=== PATIENT | female | born 1970 | race Caucasian/White ===

== ENCOUNTER 2018-10-11 19:19 | Outpatient (REF) | payer OTHER, SELFPAY | END 2018-10-11 19:39 | LOC: NCHCN 19:19 | PROVIDERS: PCP Family Medicine; Visit Provider Family Medicine | DX: R69 Illness, unspecified (principal) | CPT/HCPCS: 87480; 87510; 87660 ==

== ENCOUNTER 2018-10-18 21:25 | Outpatient (REF) | payer OTHER, SELFPAY | END 2018-10-18 21:45 | LOC: NCHCN 21:25 | PROVIDERS: PCP Family Medicine; Visit Provider Family Medicine | DX: N89.8 Other specified noninflammatory disorders of vagina (principal) | CPT/HCPCS: 87480; 87510; 87660 ==

== ENCOUNTER 2018-10-19 05:58 | Outpatient (CLI) | payer OTHER, SELFPAY ==
--- NOTE | 2018-10-23 12:56 | HOLTER_ITS ---
HOLTER MONITOR REPORT DATE OF DICTATION October 23, 2018 STUDY INDICATION Palpitations. REQUESTING PROVIDER Carla López M.D. FINDINGS The patient was monitored for 24 hours. The baseline rhythm was sinus rhythm. Average heart rate 78 beats per minute, range 56 to 161 beats per minute. 26 PVCs, no VT. No PACs. No SVT. There was intermittent nocturnal 2:1 second-degree heart block Mobitz type I. No pauses greater than 3 seconds. No higher degree heart block. There were 3 patient events, none of these events correlated with arrhythmias. FINAL INTERPRETATION Intermittent nocturnal second-degree heart block, Mobitz type I. Otherwise a normal study. Ruslan Salas M.D. JEOVANNY/jelly T- 10/23/2018
== END 2018-10-19 06:18 ==
PROVIDERS: PCP Family Medicine; Visit Provider Family Medicine
DX: R00.2 Palpitations (principal); I44.1 Atrioventricular block, second degree
CPT/HCPCS: 93225

== ENCOUNTER 2018-10-23 10:15 | Outpatient (CLI) | payer OTHER, SELFPAY | END 2018-10-23 10:35 | PROVIDERS: PCP Family Medicine; Visit Provider Family Medicine | DX: R00.2 Palpitations (principal); I44.1 Atrioventricular block, second degree | CPT/HCPCS: 93225; 93226 ==

== ENCOUNTER 2019-04-25 00:52 | Outpatient (CLI) | payer OTHER, SELFPAY ==
--- NOTE | 2019-04-25 07:30 | MERGE_ITS ---
*[facility]* *[facility]* [address] [place] [address] Date of study: 04/25/2019 Transthoracic Echocardiography M-mode, complete 2D, complete spectral Doppler, and color Doppler *STUDY CONCLUSIONS* Summary: 1. Left ventricle: The cavity size was normal. Wall thickness was normal. Systolic function was normal. The estimated ejection fraction was 60-65%. Wall motion was normal; there were no regional wall motion abnormalities. 2. Right ventricle: The cavity size was at the upper limits of normal. Wall thickness was normal. Systolic function was normal. 3. Pulmonary arteries: Pulmonary systolic pressure was within the normal range. *PATIENT PRESENTATION* Height: 152.4cm ((60in) ) S/D Pressure: 121 / 82 Weight: 56.7kg ((124.7lb) ) BSA: 1.56m^2 Test start time: 07:40 AM. Test stop time: 08:40 AM. ORDERING Carla López V REFERRING Carla López V PERFORMING Unknown PERFORMING [facility] HEEL COVERER Chasity Pérez RT (R)(CT), UMER REFERRING Md Maribel Lin *PROCEDURE DATA* Procedure information: The patient was identified by two identifiers. This study was interpreted by [facility]. Pertinent images and digital data are archived for permanent storage and are available for subsequent review. No prior study was available for comparison. Study status: Routine. Transthoracic echocardiography. M-mode, complete 2D, complete spectral Doppler, and color Doppler. A Transthoracic Echocardiogram was performed. Scanning was performed from the parasternal, apical, subcostal, and suprasternal notch acoustic windows. Images were obtained using an [id number] cardiac ultrasound machine. Image quality was fair. Study completion: The patient tolerated the procedure well. History: PMH: Intermittent palpitations R00.2. *CARDIAC ANATOMY* Left ventricle: The cavity size was normal. Wall thickness was normal. Systolic function was normal. The estimated ejection fraction was 60-65%. Wall motion was normal; there were no regional wall motion abnormalities. Aortic valve: Trileaflet; normal thickness leaflets. Mobility was not restricted. Doppler: Transvalvular velocity was within the normal range. There was no stenosis. There was no significant regurgitation. VTI ratio of LVOT to aortic valve: 0.79. Valve area (VTI): 2.2cm^2. Indexed valve area (VTI): 1.4cm^2/m^2. Peak velocity ratio of LVOT to aortic valve: 0.8. Valve area (Vmax): 2.3cm^2. Indexed valve area (Vmax): 1.4cm^2/m^2. Mean velocity ratio of LVOT to aortic valve: 0.76. Valve area (Vmean): 2.1cm^2. Indexed valve area (Vmean): 1.4cm^2/m^2. Mean gradient (S): 2.6mm Hg. Peak gradient (S): 4.4mm Hg. Aorta: Aortic root: The aortic root was normal in size. Ascending aorta: The ascending aorta was normal in size. Mitral valve: Mildly thickened leaflets. Mobility was not restricted. Doppler: Transvalvular velocity was within the normal range. There was no evidence for stenosis. There was trivial regurgitation. Valve area by pressure half-time: 4cm^2. Indexed valve area by pressure half-time: 2.6cm^2/m^2. Left atrium: The atrium was normal in size. Right ventricle: The cavity size was at the upper limits of normal. Wall thickness was normal. Systolic function was normal. Pulmonic valve: Poorly visualized. Doppler: Transvalvular velocity was within the normal range. There was no evidence for stenosis. There was no significant regurgitation. Peak gradient (S): 2mm Hg. Tricuspid valve: Structurally normal valve. Doppler: Transvalvular velocity was within the normal range. There was no evidence for stenosis. There was trivial regurgitation. Pulmonary artery: Poorly visualized. Pulmonary systolic pressure was within the normal range. Right atrium: The atrium was normal in size. The Eustachian valve appeared prominent. Pericardium: There was no pericardial effusion. Systemic veins: Inferior vena cava: Well visualized. The vessel was patent and normal in size. The respirophasic diameter changes were in the normal range (greater than or equal to 50%), consistent with normal central venous pressure. Baseline ECG: Normal sinus rhythm. Measurements Left ventricle Value Reference LV ID, ED, PLAX 4.8 cm 3.5 - 6.0 LV ID, ES, PLAX 3.3 cm 2.1 - 4.0 LV PW thickness, ED, PLAX 0.9 cm LV end-diastolic volume, 1-p A2C 79 ml LV ejection fraction, 1-p A2C 66 % LV end-diastolic volume, 1-p A4C 64 ml LV ejection fraction, 1-p A4C 63 % LV e', lateral 0.12 m/sec LV E/e', lateral 5 LV e', medial 0.078 m/sec LV E/e', medial 7 LV e', average 0.099 m/sec LV E/e', average 6 Ventricular septum Value Reference IVS thickness, ED, PLAX 0.7 cm LVOT Value Reference LVOT ID, A-P 1.9 cm LVOT area 2.8 cm^2 LVOT peak velocity, S 0.83 m/sec LVOT mean velocity, S 0.6 m/sec LVOT VTI, S 16.6 cm LVOT peak gradient, S 2.8 mm Hg LVOT mean gradient, S 1.6 mm Hg Stroke volume (SV), LVOT DP 47 ml Stroke index (SV/bsa), LVOT DP 30 ml/m^2 Aortic valve Value Reference Aortic valve peak velocity, S 1 m/sec Aortic valve mean velocity, S 0.78 m/sec Aortic valve VTI, S 21.0 cm Aortic mean gradient, S 2.6 mm Hg Aortic peak gradient, S 4.4 mm Hg VTI ratio, LVOT/AV 0.79 Aortic valve area, VTI 2.2 cm^2 Velocity ratio, peak, LVOT/AV 0.8 Aortic valve area, peak velocity 2.3 cm^2 Velocity ratio, mean, LVOT/AV 0.76 Aortic valve area, mean velocity 2.1 cm^2 Aortic valve area/bsa, mean velocity 1.4 cm^2/m^2 Aorta Value Reference Aortic root ID, ED 3.1 cm Ascending aorta ID, A-P, S 3.2 cm Left atrium Value Reference LA ID, A-P, ES 2.4 cm LA ID/bsa, A-P 1.5 cm/m^2 <=2.2 LA area, ES, A4C 11.3 cm^2 8.8 - 23.4 LA area, ES, A2C 15 cm^2 LA volume/bsa, ES, 1-p A4C 27 ml/m^2 LA volume, ES, 2-p 34 ml LA volume/bsa, ES, 2-p 21 ml/m^2 LA/aortic root ratio 0.75 Mitral valve Value Reference Mitral E-wave peak velocity 0.58 m/sec Mitral A-wave peak velocity 0.53 m/sec Mitral deceleration time 190 ms 150 - 230 Mitral pressure half-time 55 ms Mitral E/A ratio, peak 1.1 Mitral valve area, PHT, DP 4 cm^2 Pulmonary arteries Value Reference PA pressure, S, DP 28 mm Hg <=30 Tricuspid valve Value Reference Tricuspid regurg peak velocity 2.2 m/sec Tricuspid peak RV-RA gradient 19.8 mm Hg Right atrium Value Reference RA area, ES, A4C 13.9 cm^2 8.3 - 19.5 Systemic veins Value Reference Estimated CVP 10 mm Hg Right ventricle Value Reference RV pressure, S, DP 30 mm Hg <=30 Pulmonic valve Value Reference Pulmonic peak gradient, S 2 mm Hg Legend: (L) and (H) carl values outside specified reference range. I have personally reviewed the images and have reviewed and edited the reported findings. Electronically signed by Sean Bill 04/25/2019 16:24
== END 2019-04-25 01:12 ==
PROVIDERS: PCP Family Medicine; Visit Provider Family Medicine
DX: R00.2 Palpitations (principal)
CPT/HCPCS: 93306

== ENCOUNTER 2019-05-01 10:19 | Outpatient (CLI) | payer OTHER, SELFPAY | END 2019-05-01 10:39 | PROVIDERS: PCP Family Medicine; Visit Provider Student in an Organized Health Care Education/Training Program | DX: I47.1 Supraventricular tachycardia (principal) | CPT/HCPCS: 93005; 93010 ==

== ENCOUNTER 2019-05-01 13:19 | Outpatient (REF) | payer OTHER, SELFPAY ==
[2019-05-01 20:26] LABS: Cholesterol 190 mg/dL (50-200); HDL Cholesterol 107 mg/dL (40-60)
[2019-05-01 20:28] LABS: Triglyceride < 25 mg/dL (30-150)
[2019-05-01 20:39] LABS: LDL CHOLESTEROL 72 mg/dL (<100)
== END 2019-05-01 13:39 ==
LOC: NCHCN 13:19
PROVIDERS: PCP Family Medicine; Visit Provider Family Medicine
DX: Z13.220 Encounter for screening for lipoid disorders (principal); Z13.6 Encounter for screening for cardiovascular disorders
CPT/HCPCS: 80061; 83721

== ENCOUNTER 2019-08-02 01:50 | Outpatient (CLI) | payer OTHER, SELFPAY ==
--- NOTE | 2019-08-02 08:12 | DI.MAMMO_ITS ---
EXAM: MAMMO SCREENING CLINICAL HISTORY: SCREENING, Z12.31. TECHNIQUE: Mammograms were interpreted according to the usual protocol including computer analysis w [facility] CAD system, tomosynthesis and C-view imaging. COMPARISON: Previous examinations including November 2016 FINDINGS: Breasts are heterogeneously dense with no dominant mass or clumped microcalcification identified [facility] e [facility] breast. Current examination is compared with previous examinations including November 2016 and there has been no gross interval change in appearance in comparison with the previous studies. IMPRESSION: No specific evidence of malignancy at this time. Routine screening examinations are suggested at year ly intervals in this age group according to the ACS/ACR guidelines. Category 1, breast density catego ry C. BI-RADS Cat 1 - Negative Breast Density - Category C - Heterogeneously dense
== END 2019-08-02 02:10 ==
PROVIDERS: PCP Family Medicine; Visit Provider Family Medicine
DX: Z12.31 Encounter for screening mammogram for malignant neoplasm of breast (principal)
CPT/HCPCS: 77063; 77067

== ENCOUNTER 2019-11-19 17:56 | Outpatient (REF) | payer OTHER, SELFPAY ==
[2019-11-19 21:44] LABS: HCT 40.3 % (36.0-46.0); HGB 13.4 g/dL (12.0-15.5); Mean Corp. HGB Concentration 33.3 g/dL (32.0-36.0); Mean Corpuscular Hemoglobin 32.1 pg (27.0-33.0); Mean Corpuscular Volume 96.4 fL (80-95); Platelet Count 298 x1000/uL (130-400); RBC 4.18 m/cumm (4.00-5.20); RBC Distribution Width 12.1 % (11.7-14.6); White Blood Cell Count 6.68 k/cumm (4.4-10.8)
[2019-11-19 22:12] LABS: Ferritin 27 ng/mL (8-252); TSH (W/Ref FT4) 2.28 uIU/mL (0.36-3.74)
== END 2019-11-19 18:16 ==
LOC: NCHCN 17:56
PROVIDERS: PCP Family Medicine; Visit Provider Family Medicine
DX: N93.8 Other specified abnormal uterine and vaginal bleeding (principal)
CPT/HCPCS: 85027; 82728; 84443

== ENCOUNTER 2019-12-17 09:44 | Outpatient (CLI) | payer OTHER, SELFPAY ==
[2019-12-17 11:06] LABS: HCT 40.9 % (36.0-46.0); HGB 13.7 g/dL (12.0-15.5); Mean Corp. HGB Concentration 33.5 g/dL (32.0-36.0); Mean Corpuscular Hemoglobin 31.8 pg (27.0-33.0); Mean Corpuscular Volume 94.9 fL (80-95); Mean Platelet Volume 9.6 fL (8.0-11.0); Platelet Count 312 x1000/uL (130-400); RBC 4.31 m/cumm (4.00-5.20); RBC Distribution Width 11.6 % (11.7-14.6); White Blood Cell Count 4.13 k/cumm (4.4-10.8)
[2019-12-17 12:07] LABS: BUN 18 mg/dL (7-18); Calcium 8.5 mg/dL (8.5-10.1); Chloride 106 mmol/L (98-107); Glucose 101 mg/dL (74-106); Potassium 4.8 mmol/L (3.5-5.1); Sodium 140 mmol/L (136-145)
[2019-12-17 15:13] LABS: HCG Qual (Serum) Negative
== END 2019-12-17 10:04 ==
PROVIDERS: PCP Family Medicine; Visit Provider Obstetrics & Gynecology Gynecology
DX: D25.9 Leiomyoma of uterus, unspecified (principal); Z01.818 Encounter for other preprocedural examination; Z01.812 Encounter for preprocedural laboratory examination
CPT/HCPCS: 36415; 80048; 85027; 86850; 86900; 86901; 84703

== ENCOUNTER 2019-12-25 10:16 | Observation (INO) | payer OTHER, SELFPAY ==
[2019-12-25] VITALS (18 sets, daily range): BP systolic 103–137; BP diastolic 56–88; PULSE 51–98; RESP 12–20; TEMP 36.4–36.9; O2SAT 96–100
[2019-12-25] MEDS: Lactated Ringers 1,000 ML 125 ML IV ×2 (06:35→19:26)
[2019-12-25] MEDS: ceFAZolin 2 GM/50 ML BAG IVPB (07:36)
--- NOTE | 2019-12-25 09:05 | UTER_PTH ---
PATIENT: Angella Hartley LOC: OBS U#:[id number] AGE/SX: 49/F ROOM: OBS.306 RE12/25/[address]: Kelsea Green : 1970 BED: A DIS: 12/26/2019 SPEC #: [id number] RECD: 12/25/19 12:43 STATUS: FARSHAD REQ #: [id number] ADENIKE: 12/25/19 09:[address]: Kelsea Green DEPT: Surgical Specimen RECD BY: Vicky Briseno ENTERED: 12/25/19 12:44 SP TYPE: UTER OTHR DR: Carla López V Tissues: 1 - UTERUS W OR W/O OVARIES(NOT TUMOR/PROLAPSE) 2 - FALLOPIAN TUBE (OTHER) 3 - FALLOPIAN TUBE (OTHER) Procedures: GROSS AND MICRO LEVEL 5 Comments: [id number] (ALL SPECIMENS IN ONE CONTAINER)
[2019-12-25] MEDS: fentaNYL 100 MCG/2 ML VIAL IVP ×2 (11:12→11:25)
[2019-12-25] MEDS: Phenazopyridine 200 MG TAB PO ×2 (11:53→19:24)
[2019-12-25] MEDS: ACETAMINOPHEN 1,000 MG/100 ML BTL 400 MG IVPB (12:18)
[2019-12-25] MEDS: HYDROmorphone 2 MG/ML VIAL IVP (12:32)
[2019-12-25] MEDS: Droperidol 5 MG/2 ML VIAL 0.625 MG IVP (12:40)
--- NOTE | 2019-12-25 13:32 | NUR.NOTE ---
1300: Admitted to room 306 from PACU. Eyes closed, resp even, schumacher cath to BSD, urine blue. IV of LR infusing via R periph line at 125 cc/hr. Pt sleeping but answers to name. Report received from nurse.Nursing Note:
[2019-12-25] MEDS: HYDROcodone 5/Acetaminophen 325 TAB PO ×3 (14:59→20:26)
[2019-12-25] MEDS: Ketorolac 30 MG/ML VIAL IVP ×2 (15:26→20:24)
[2019-12-25] MEDS: Normal Saline Flush 10 ML SYR IV ×3 (15:26→20:25)
[2019-12-25] MEDS: Ondansetron 4 MG/2 ML VIAL IVP (19:24)
[2019-12-25] MEDS: Docusate Sodium 100 MG CAP PO (19:24)
--- NOTE | 2019-12-25 21:35 | W.PM.OP ---
Date of service: 12/25/19 Time of Service: 21:35 Operative Note Operative Note DATE OF PROCEDURE: 12/25/19 PRE-OP DIAGNOSIS: Symptomatic fibroid uterus POST-OP DIAGNOSIS: same PROCEDURE: Vaginal hysterectomy and bilateral salpingectomy, bladder cystoscopy at the completion of the case SURGEON: Kelsea Green DIAPER MACHINE TENDER: Mulu Cohn ANESTHESIA: GETA ESTIMATED BLOOD LOSS: 100 PATHOLOGY: other (Uterus cervix and bilateral fallopian tubes) COMPLICATIONS: None Patient was transported to: PACU Patient's condition: stable Indications: 49-year-old female with an enlarged uterus and symptomatic submucosal fibroid who desired definitive therapy. Findings: Soft enlarged uterus with evidence of subserosal and intramural fibroids. Normal ovaries normal fallopian tubes Procedure Description: Patient was brought to the OR room 2 where she was placed in the dorsal supine position and general endotracheal anesthesia was administered without difficulty. She received 2 g of Ancef upon arrival in the OR. SCDs were in place. Contreras catheter was placed to gravity drainage patient was prepped and draped in the usual sterile fashion a surgical timeout was performed. A weighted vaginal speculum was placed in the vagina and the cervix was grasped with 2 single-tooth tenaculums the body of the cervix was infiltrated with 1% lidocaine with epinephrine in a circumferential fashion. Bovie electrocautery was then used to incise the cervix and anterior and posterior the fascial planes was created with a combination of blunt technique and dissection using Metzenbaum scissors. Once the rectal vaginal fascia had been dissected off of the posterior body of the cervix the posterior cul-de-sac was entered sharply and through the incision a longbilled weighted speculum was placed. This allowed mobilization of the uterosacral ligament cardinal complex away from the right and left vaginal sidewalls. The right uterosacral ligament was clamped transected and suture-ligated and held long using 0 Vicryl in a similar technique was carried out on the contralateral uterosacral ligament. This allowed the anterior cul-de-sac to be entered sharply and through the incision a curved Leola was placed to retract the bladder away from the operative field. The remaining right and left broad ligament was then clamped cut and suture-ligated total level of the right uterine cornua which was then doubly clamped, transected and suture-ligated with excellent hemostasis noted at the pedicle site. Similar technique was carried out on the left uterine cornua. The uterus was freed and passed off of the operative field. The right fallopian tube was visualized followed out to its fimbriated end clamped transected and the pedicle suture-ligated. Similar technique was carried out on the contralateral fallopian tube. Both ovaries were inspected and appeared normal. The peritoneum of the vaginal cuff was closed with a pursestring suture of 2-0 Vicryl. The vaginal cuff was reapproximated in a vertical fashion with running suture of 0 Vicryl to the level of the uterosacral ligament sutures. A free needle was then used to place the uterosacral ligament pedicle higher up on the body of the uterosacral ligament and through the lateral margins of the vaginal cuff bilaterally. The remaining vaginal cuff incision was closed with 0 Vicryl in a running fashion. There is excellent hemostasis of the vaginal cuff at the completion of the procedure. The instruments removed from the patient's vagina and a cystoscopy was performed using normal saline as the distention medium. Both ureters were visualized and noted to have a brisk chest of urine bilaterally. Contreras catheters was reinserted to gravity drainage patient was placed in the dorsal supine position awakened from anesthesia extubated and transported recovery area in stable condition all sponge lap needle counts correct x2
[2019-12-26] MEDS: HYDROcodone 5/Acetaminophen 325 TAB PO ×3 (00:34→08:20)
[2019-12-26] MEDS: Lactated Ringers 1,000 ML 125 ML IV (03:00)
[2019-12-26 04:00] VITALS: BP 128/82; PULSE 68; RESP 18; TEMP 37
[2019-12-26] MEDS: Ketorolac 30 MG/ML VIAL IVP (04:06)
[2019-12-26] MEDS: Normal Saline Flush 10 ML SYR IV (04:06)
[2019-12-26 06:36] LABS: HCT 33.7 % (36.0-46.0); HGB 11.3 g/dL (12.0-15.5); Mean Corp. HGB Concentration 33.5 g/dL (32.0-36.0); Mean Corpuscular Hemoglobin 32.2 pg (27.0-33.0); Mean Platelet Volume 9.1 fL (8.0-11.0); Platelet Count 273 x1000/uL (130-400); RBC 3.51 m/cumm (4.00-5.20); RBC Distribution Width 11.8 % (11.7-14.6)
--- NOTE | 2019-12-26 07:39 | DSE_ITS ---
Date of service: 12/26/19 Time of Service: 07:39 DS: Diagnosis Discharge Diagnosis (1) Fibroid uterus: Status: Acute (2) History of total vaginal hysterectomy (TVH): Status: Acute Discharge Plan Disposition Patient Disposition: HOME Condition: Fair Discharge Details Reason For Visit: SYMTOMATIC FIBROID UTERUS Admit Date/Time: 12/25/19 10:16 Admit Provider: Kelsea Green Attending Provider: Kelsea Green Primary Care Provider: Carla López V Hospital Course Hospital Course: Pt admitted morning of surgery and underwent the above stated procedure. Final path report pending. Postop course was uncomplicated. Contreras catheter was discontinued evening of surgery and pt was able to void spontaneously. Tolerating regular diet. Discharge meds: Vicodin 5/325mg q6hr as needed. Ibuprofen 600mg every 6hrs as needed. Patient will have follow up visit with me in 2weeks or as needed. Home Meds and New Rx's Prescriptions: No Action methylphenidate HCl [Ritalin] 5 MG tablet 5 mg PO BID RF: 0 Discharge Instructions Stand Alone Forms: DSU Post Gynecology Surgery Activity:: Activity as Tolerated Equipment/Supplies:: No Equipment Needed Diet:: As Tolerated Discharge Orders Discharge Orders: Discharge Order (Routine); Ordered 12/26/19 Ordered By: Kelsea Green Discharge Data Discharge Date/Time-TO BE ENTERED AT DEPARTURE: 12/26/19 10:18 DS: Summary Status at Discharge Functional status at discharge: independent ambulation Overall status at discharge: patient is progressing back to baseline Mental Status: mental status grossly normal Speech and Movement: speech and movement normal Mood: congruent mood Affect: normal affect Exam Narrative Exam Narrative: By the morning after surgery the patient was comfortable and strongly desired discharge to home. She was counseled regarding limitations of activity and signs and symptoms of infection. Resp Effort & Inspection: normal respiratory effort Auscultation: clear to auscultation bilaterally Cardio Rate: regular rate Rhythm: regular rhythm GI Inspection: normal to inspection Palpation: soft, no masses and nontender General: deferred Skin General skin exam: no rashes or lesions noted Extrem General: normal to inspection, full ROM and capillary refill normal Psych Appearance: grossly normal Mental Status: mental status grossly normal Speech and Movement: speech and movement normal Mood: congruent mood Affect: normal affect DS: Data Vitals/I&O Vitals and I&O: Vital Signs Temperature 98.6 F 12/26/19 04:00 Temperature Source Tympanic 12/26/19 04:00 Pulse 68 12/26/19 04:00 Pulse Rhythm Regular 12/25/19 15:55 Respiratory Rate 18 12/26/19 04:00 Respiratory Effort 12/25/19 15:55 Respiratory Depth Normal 12/25/19 15:55 Respiratory Pattern Normal 12/25/19 15:55 Blood Pressure 128/82 12/26/19 04:00 Pulse Oximetry 100 12/25/19 23:42 Respiratory End-tidal CO2 12/25/19 12:15 Oxygen Delivery Method Room Air 12/26/19 04:00 Oxygen Flow Rate 0 12/26/19 04:00 Pain Level 3 12/26/19 04:06 Intake & Output 12/25/19 12/25/19 12/26/19 11:59 23:59 11:59 Intake Total 750 / 1750 1000 / 1750 1352 / 1352 Output Total 100 / 775 675 / 775 Balance 650 / 975 325 / 975 1352 / 1352 Weight 125 lb 3.561 oz 125 lb 3.561 oz Intake: IV 750 / 1150 400 / 1150 1352 / 1352 Oral 600 / 600 Output: Urine 675 / 675 Estimated Blood Loss 100 / 100 Other: Urine Color [place] Urine Appearance Clear Urine Odor None Emesis Description None None Voiding Methods Toilet Data Completed and Pending Labs on day of discharge: Labs from last 24 hours 12/26/19 06:08 WBC 8.20 RBC 3.51 L Hgb 11.3 L Hct 33.7 L MCV 96.0 H MCH 32.2 MCHC 33.5 RDW 11.8 Plt Count 273 MPV 9.1 PFSH Medical History Fibroid uterus (Acute) 11/2019 uterus 11 cm 3 x 3.5 x 4 cm submucosal fibroid. 7 mm ES. History of second degree heart block (Acute) Intermittent nocturnal second degree heartblock Jennifer Sparrow saw Dr. Olmstead Lichen sclerosus et atrophicus periclitoral region. Paroxysmal supraventricular tachycardia (Acute) Urinary frequency (Acute) 11/2019 direct result of uterine fibroid. No urinary incontinence Surgical History (Updated 12/26/19 @ 07:42 by Kelsea Green MD) History of total vaginal hysterectomy (TVH) (Acute) 12/25/19. TVH with bilateral salpingectomy for symptomatic fibroid uterus Tonsillectomy and adenoidectomy (~2018) Family History (Updated 12/17/19 @ 10:58 by Dhiraj Arias) Father Substance abuse Social History (Updated 12/26/19 @ 07:45 by Kelsea Green MD) Smoking/Tobacco Use Status: Former Tobacco Use Quit Date: 11/13/01 Alcohol Intake: current Alcohol Intake frequency: a few times a week Alcohol type: wine Drug use: Never Substance use type: does not use Household members: spouse, children and other Details: H - Luis Manuel Number of Children: 2 Do you feel safe at home: Yes Do you feel safe in your relationship?: Yes History History 2 Para Hx # Term Pregnancies 2 Multiple births Hx # Pregnancies Ectopic pregnancies AB induced Hx Number of Living Children 3 AB spontaneous
[2019-12-26 08:14] VITALS: BP 119/80; PULSE 70; RESP 18; TEMP 36.7; O2SAT 100
[2019-12-26] MEDS: Docusate Sodium 100 MG CAP PO (08:20)
== END 2019-12-26 10:18 | disposition home or self-care (01) ==
LOC: OBS 12:57
PROVIDERS: Admitting Provider Obstetrics & Gynecology Gynecology; PCP Family Medicine; Visit Provider Obstetrics & Gynecology Gynecology
PROC: 0UT97ZZ Resection of Uterus, Via Natural or Artificial Opening (ICD-10-PCS; CPT 58260; principal; 2019-12-25 07:30)
DX: D25.0 Submucous leiomyoma of uterus (principal); N80.0 Endometriosis of uterus
CPT/HCPCS: 58262; 36415; 81025; 85027; NC; 88307; J0131; J0690; J1100; J1790; J1885; J2001; J2250; J2405; J3010; J3475

== ENCOUNTER 2020-09-28 12:38 | Outpatient (REF) | payer SELFPAY ==
[2020-10-01 09:01] LABS: SARS-CoV-2 RNA Not Detected (NotDetected); SARS-CoV-2 RNA Source Nasal/Nares
== END 2020-09-28 12:58 ==
LOC: NCHCN 12:38
PROVIDERS: PCP Family Medicine; Visit Provider Nurse Practitioner Family
DX: Z11.59 Encounter for screening for other viral diseases (principal)
CPT/HCPCS: U0003

== ENCOUNTER 2021-04-01 07:51 | Outpatient (REF) | payer OTHER, SELFPAY ==
[2021-04-01 15:03] LABS: Calculated LDL 91 mg/dL (<100); Cholesterol 193 mg/dL (<200); Glucose 100 mg/dL (74-106); HDL Cholesterol 94 mg/dL (40-60); Triglyceride 42 mg/dL (<150)
== END 2021-04-01 07:52 | disposition home or self-care (01) ==
LOC: NCHCN 07:51
PROVIDERS: PCP Family Medicine; Visit Provider Family Medicine
DX: Z00.00 Encounter for general adult medical examination without abnormal findings (principal); Z13.1 Encounter for screening for diabetes mellitus; Z13.220 Encounter for screening for lipoid disorders
CPT/HCPCS: 80061; 82947

== ENCOUNTER 2021-09-24 09:18 | Outpatient (REF) | payer OTHER, SELFPAY ==
[2021-09-25 00:42] LABS: COVID-19 RT-PCR UVMMC Result Negative (Negative)
== END 2021-09-24 09:19 | disposition home or self-care (01) ==
LOC: NCHCN 09:18
PROVIDERS: PCP Family Medicine; Visit Provider Family Medicine
DX: Z20.822 Contact with and (suspected) exposure to COVID-19 (principal); J06.9 Acute upper respiratory infection, unspecified
CPT/HCPCS: U0003

== ENCOUNTER 2021-11-18 13:38 | Outpatient (REF) | payer OTHER, SELFPAY ==
[2021-11-19 12:31] LABS: COVID-19 RT-PCR UVMMC Result Negative (Negative)
== END 2021-11-18 13:39 | disposition home or self-care (01) ==
LOC: LBN 13:38
PROVIDERS: PCP Family Medicine; Visit Provider Family Medicine
DX: Z20.822 Contact with and (suspected) exposure to COVID-19 (principal)
CPT/HCPCS: U0003

== ENCOUNTER 2023-02-16 12:44 | Outpatient (REF) | payer BC, SELFPAY ==
[2023-02-16 15:16] LABS: Abs Immature Grans 0.01 10^3/uL (0.0-0.06); Absolute Basophil Count 0.03 10^3/uL (0.0-0.2); Absolute Eosinophil Count 0.12 10^3/uL (0.0-0.7); Absolute Lymphocyte Count 1.46 10^3/uL (1.2-3.4); Absolute Neutrophil Count 2.67 10^3/uL (1.2-6.7); Basophils % 0.6; Eosinophils % 2.6; HCT 42.1 % (36.0-46.0); Immature Grans % 0.2; Lymphocytes % 31.1; MCH 31.6 pg (27.0-33.0); MCHC 33.3 % (32.0-36.0); MCV 95 fL (80-95); MPV 10.1 fL (8.0-11.0); Monocytes % 8.5; Platelet Count 247 10^3/uL (130-400); RBC 4.43 10^6/uL (3.93-5.22); RDW 11.5 % (11.7-14.6); WBC 4.69 10^3/uL (4.4-10.8)
[2023-02-16 15:44] LABS: Hemoglobin A1C 5.8 % (<5.7)
[2023-02-16 16:05] LABS: ALT 25 U/L (14-59); AST 19 U/L (15-37); Albumin 3.8 g/dL (3.4-5.0); Alkaline Phosphatase 69 U/L (46-116); Anion Gap 5.9 mmol/L (3-11); BUN 20 mg/dL (7-18); Bilirubin, Total 0.2 mg/dL (0.2-1.0); CO2 30.1 mmol/L (21.0-32.0); CREATININE 1.6 mg/dL (0.55-1.02); Calcium 9.3 mg/dL (8.5-10.1); Chloride 106 mmol/L (98-107); Estimated GFR 38.81 (mL/min/1.73m2); Glucose 95 mg/dL (74-106); Potassium 4.5 mmol/L (3.5-5.1); Sodium 142 mmol/L (136-145); TSH (W/Ref FT4) 2.72 uIU/mL (0.36-3.74); Total Protein 6.5 g/dL (6.4-8.2)
[2023-02-17 11:37] LABS: Creatine Kinase 74 U/L (26-192)
== END 2023-02-16 12:45 | disposition home or self-care (01) ==
LOC: NCHCN 12:44
PROVIDERS: PCP Family Medicine; Visit Provider Family Medicine
DX: E04.1 Nontoxic single thyroid nodule (principal); R61 Generalized hyperhidrosis; R53.83 Other fatigue; N95.1 Menopausal and female climacteric states; Z13.1 Encounter for screening for diabetes mellitus
CPT/HCPCS: 80053; 82550; 83036; 84443; 85025

== ENCOUNTER 2023-02-17 15:50 | Outpatient (REF) | payer BC, SELFPAY ==
[2023-02-17 14:15] LABS: Bilirubin Negative (Negative); Blood Negative (Negative); Clarity Clear (Clear); Glucose Negative (Negative); Ketones Negative (Negative); Leukocyte Esterase Negative (Negative); Nitrite Negative (Negative); Specific Gravity 1.015 (1.005-1.025); Urobilinogen 0.2 mg/dL (Up to 0.2)
[2023-02-17 14:25] LABS: Bacteria Negative HPF (Negative); C & S Indicated? No; Casts Negative LPF (Negative); Crystals Negative HPF (Negative); Epithelial Cells Few HPF (Negative); Mucus Negative (Negative); RBC 0-2 HPF (0-2); WBC 0-2 HPF (0-5)
[2023-02-17 19:12] LABS: BUN 17 mg/dL (7-18); CREATININE 0.8 mg/dL (0.55-1.02); Calcium 9.5 mg/dL (8.5-10.1); Chloride 104 mmol/L (98-107); Creatine Kinase 72 U/L (26-192); Estimated GFR 89.15 (mL/min/1.73m2); Glucose 100 mg/dL (74-106); Potassium 4.4 mmol/L (3.5-5.1); Sodium 140 mmol/L (136-145)
[2023-02-19 09:40] LABS: Parathyroid Hormone,Intact 57 pg/mL (19-88)
== END 2023-02-17 15:51 | disposition home or self-care (01) ==
LOC: NCHCN 15:50
PROVIDERS: PCP Family Medicine; Visit Provider Family Medicine
DX: N28.9 Disorder of kidney and ureter, unspecified (principal); R61 Generalized hyperhidrosis; R53.83 Other fatigue; N95.1 Menopausal and female climacteric states; E04.1 Nontoxic single thyroid nodule
CPT/HCPCS: 80048; 82550; 81003; 81015; 83970

== ENCOUNTER 2023-07-07 10:08 | Outpatient (REF) | payer BC, SELFPAY ==
--- NOTE | 2023-07-07 08:45 | SKI_PTH ---
PATIENT: Angella Hartley LOC: [facility]#:[id number] AGE/SX: 52/F ROOM: RE07/07/[address]: Carla López V : 1970 BED: DIS: 07/07/2023 SPEC #: [id number] RECD: 07/07/23 15:16 STATUS: FARSHAD REElsy #: [id number] ADENIKE: 07/07/23 08:[address]: Carla López V DEPT: Surgical Specimen RECD BY: Vicky Briseno Tissues: 1 - SKIN BIOPSY(SHAVE/PUNCH) Procedures: SKIN LEVEL 4 Comments: [id number]
== END 2023-07-07 10:09 | disposition home or self-care (01) ==
LOC: NCHCN 10:08
PROVIDERS: PCP Family Medicine; Visit Provider Family Medicine
DX: L30.8 Other specified dermatitis (principal)
CPT/HCPCS: 88305

== ENCOUNTER 2024-01-11 05:19 | Outpatient (CLI) | payer SELFPAY ==
[2024-01-11 17:57] LABS: HBs Antibody, Quant 629.6 mIU/mL (See Note); Hepatitis B Surface Ab Positive (See Note)
[2024-01-12 09:06] LABS: Varicella IgG Antibody Positive (See Note)
[2024-01-12 09:16] LABS: Measles IgG Antibody Positive (See Note)
[2024-01-12 09:19] LABS: Mumps Antibody IgG Positive (See Note); Rubella IgG Ab (UVM) Positive (See Note)
[2024-01-15 13:16] LABS: TB Interpretation Negative (Negative); TB1 Ag minus Nil 0.01 IU/ml; TB2 Ag minus Nil 0.01 IU/mL
== END 2024-01-11 05:20 | disposition home or self-care (01) ==
LOC: LOS 05:20
PROVIDERS: PCP Family Medicine; Visit Provider Nurse Practitioner Family
DX: Z02.1 Encounter for pre-employment examination (principal)
CPT/HCPCS: 36415; 86706; 86787; 86480; 86735; 86762; 86765

== ENCOUNTER 2024-03-07 14:44 | Outpatient (REF) | payer BC, SELFPAY ==
[2024-03-07 16:19] LABS: Hemoglobin A1C 5.6 % (<5.7)
[2024-03-07 21:52] LABS: FREE T4 0.81 ng/dL (0.76-1.46); TSH 2.59 uIU/Ml (0.36-3.74)
[2024-03-07 22:46] LABS: Calculated LDL 103 mg/dL (<100); Cholesterol 221 mg/dL (<200); HDL Cholesterol 111 mg/dL (40-60); Triglyceride 38 mg/dL (<150)
== END 2024-03-07 14:45 | disposition home or self-care (01) ==
LOC: NCHCN 14:44
PROVIDERS: PCP Family Medicine; Visit Provider Family Medicine
DX: Z13.220 Encounter for screening for lipoid disorders (principal); Z13.1 Encounter for screening for diabetes mellitus
CPT/HCPCS: 80061; 83036; 84439; 84443

== ENCOUNTER 2024-11-22 01:06 | Outpatient (CLI) | payer OTHER, SELFPAY ==
--- OUTSIDE RECORDS SUMMARY | 2024-11-22 01:14 | XMS_ITS | Clinical Summary ---
Author Organization [facility] Address [address] [place] [address] Care Team Providers Care Directional Bore Operator Name Role Phone Carla López MD Primary Care Provider [phone] Social History Tobacco Use Types Packs/Day Years Used Date Smoking Tobacco: Never Assessed Interpersonal Safety Answer Date Record ed Physically Hurt Never 06/14/2020 Verbally Threaten Not on file 06/14/2020 Comments Unknown Sex and Gender Information Value Date Recorded Sex Assigned at Not on file Legal Sex Female 18:39 EST Gender Identity Not on file Sexual Orientation Not on file Plan of Treatment Health Maintenance Due Date Last Done Comments Hepatitis C Screen 1970 Hepatitis B Vaccine (1 of 3 - 19+ 3-dose series) 10/22 COVID-19 Vaccine ( season) 2024 Insurance [employer] Care Teams Directional Bore Operator Relationship Specialty Start Date End Date Carla López MD [address] [place] [id number] PCP - General 09/25/15
--- OUTSIDE RECORDS SUMMARY | 2024-11-22 01:14 | XMS_ITS | Encounter Summary ---
Author Organization [facility] Address [address] [place] [address] Care Team Providers Care Pigment Mixer Name Role Phone Carla López MD Primary Care Provider [phone] Encounter Details Date Type Department Care Team (Late st Contact Info) Description 01/11/2024 Lab Requisition [facility] Pathology & Laboratory Medicine - [facility] [address], [place] [address] Outr Resulting Lab, Provider Social History Tobacco Use Types Packs/Day Years Used Date Smoking Tobacco: Never Assessed Interpersonal Safety Answer Date Record ed Physically Hurt Never 06/14/2020 Verbally Threaten Not on file 06/14/2020 Comments Unknown Sex and Gender Information Value Date Recorded Sex Assigned at Not on file Legal Sex Female 18:39 EST Gender Identity Not on file Sexual Orientation Not on file documented as of this encounter Plan of Treatment Not on file documented as of this encounter Procedures Procedure Name Priority Date/Time Associated Diagnosis Comments HOLD SST Today 01/11/2024 7:56 EST MEASLES IGG AB Today 01/11/2024 7:56 EST RUBELLA IGG ANTIBODY Today 01/11/2024 7:56 EST HEPATITIS B SURFACE ANTIBODY Today 01/11/2024 7:56 EST VARICELLA IGG ANTIBODY Today 01/11/2024 7:56 EST MUMPS ANTIBODY IGG Today 01/11/2024 7:56 EST documented in this encounter Results * HOLD SST (01/11/2024 7:56 EST) Hold Hold 01/11/2024 18:01 EST [facility] Blood VENOUS BLOOD / Unknown 01/11/2024 7:56 EST 01/11/2024 16:47 EST us Provider Outr Resulting Lab LAB INFO SERVICE AND SUPPORT & PHONE RESULT Final Result Performing Organization Address [facility]/ZIP Co de Phone Number [facility] [address] [place] [address] * HEPATITIS B SURFACE ANTIBODY (01/11/2024 7:56 EST) Pathologist [facility] Hep B Surface Ab, Quantitative 629.6 See Note mIU/mL 01/11/2024 17:52 EST [facility] Comment: Reference Range for Hep B Surface Ab, Quant: Positive: >= 10.0 mIU/mL Negative: ??< 10.0 mIU/mL Patient is presumed to be immune to infection with Hepatitis B Virus. Hep B Surface Ab, Qualitative Positive See Note 01/11/2024 17:52 EST [facility] Comment: Reference Range for Hep B Surface Ab, Qual: Unvaccinated: ??Negative Vaccinated: ??Positive Blood VENOUS BLOOD / Unknown 01/11/2024 7:56 EST 01/11/2024 16:47 EST us Provider Outr Resulting Lab CHEMISTRY & BLOOD GA S ORDERABLES Final Result Performing Organization Address [facility] Co de Phone Number [facility] [address] [place] [address] * MEASLES IGG AB (01/11/2024 7:56 EST) Pathologist [facility] Measles IgG Ab Positive See Note 01/12/2024 9:11 EST [facility] Comment:Presence of detectab le measles virus IgG antibodies. Blood VENOUS BLOOD / Unknown 01/11/2024 7:56 EST 01/11/2024 16:47 EST us Provider Outr Resulting Lab IMMUNOLOGY AND SEROL OGY ORDERABLES Final Result Performing Organization Address [facility]/ZIP Co de Phone Number [facility] [address] [place] [address] * VARICELLA IGG ANTIBODY (01/11/2024 7:56 EST) Varicella IgG Ab Positive See Note 01/12/2024 9:02 EST [facility] Comment:Presence of detectab le Varicella Zoster virus IgG antibodies. Blood VENOUS BLOOD / Unknown 01/11/2024 7:56 EST 01/11/2024 16:47 EST us Provider Outr Resulting Lab IMMUNOLOGY AND SEROL OGY ORDERABLES Final Result Performing Organization Address [facility] Co de Phone Number [facility] [address] [place] [address] * MUMPS ANTIBODY IGG (01/11/2024 7:56 EST) Mumps Antibody IgG Positive See Note 01/12/2024 9:13 EST [facility] Comment:Presence of detectab le mumps virus IgG antibodies. Blood VENOUS BLOOD / Unknown 01/11/2024 7:56 EST 01/11/2024 16:47 EST us Provider Outr Resulting Lab IMMUNOLOGY AND SEROL OGY ORDERABLES Final Result Performing Organization Address [facility] Co de Phone Number [facility] [address] [place] [address] * RUBELLA IGG ANTIBODY (01/11/2024 7:56 EST) Rubella IgG Ab Positive See Note 01/12/2024 9:15 EST [facility] Comment:Positive for IgG ant ibodies to Rubella virus. Blood VENOUS BLOOD / Unknown 01/11/2024 7:56 EST 01/11/2024 16:47 EST us Provider Outr Resulting Lab CHEMISTRY & BLOOD GA S ORDERABLES Final Result [facility] [address] [place] [address] documented in this encounter Visit Diagnoses Not on filedocumented in this encounter Care Teams Pigment Mixer Relationship Specialty Start Date End Date Carla López MD [address] [place] [address] PCP - General 09/25/15 documented as of this encounter
--- OUTSIDE RECORDS SUMMARY | 2024-11-22 01:14 | XMS_ITS | Referral Summary ---
Author Organization [facility] Address [address] [place] [address] Care Team Providers Care Medical Billing Coder Name Role Phone Carla López MD Primary Care Provider [phone] Social History Tobacco Use Types Packs/Day Years Used Date Smoking Tobacco: Never Assessed Interpersonal Safety Answer Date Record ed Physically Hurt Never 06/14/2020 Verbally Threaten Not on file 06/14/2020 Comments Unknown Sex and Gender Information Value Date Recorded Sex Assigned at Not on file Legal Sex Female 18:39 EST Gender Identity Not on file Sexual Orientation Not on file Plan of Treatment Not on file Insurance [employer] Care Teams Medical Billing Coder Relationship Specialty Start Date End Date Carla López MD [address] [place] [address] PCP - General 09/25/15
--- OUTSIDE RECORDS SUMMARY | 2024-11-22 01:14 | XMS_ITS | Encounter Summary ---
Author Organization [facility] Address [address] [place] [address] Care Team Providers Care Telephonic Rn Name Role Phone Carla López MD Primary Care Provider [phone] Encounter Details Date Type Department Care Team (Late st Contact Info) Description 01/12/2024 Lab Requisition [facility] Pathology & Laboratory Medicine - [facility] [address] [place], [place] [address] Outr Resulting Lab, Provider Social History Tobacco [...] Procedure Name Priority Date/Time Associated Diagnosis Comments QUANTIFERON MITOGEN (PERFORMABLE) Today 01/11/2024 7:56 EST QUANTIFERON TB2 (PERFORMABLE) Today 01/11/2024 7:56 EST QUANTIFERON TB1 (PERFORMABLE) Today 01/11/2024 7:56 EST QUANTIFERON NIL (PERFORMABLE) Today 01/11/2024 7:56 EST QUANTIFERON INTERPRETATION (PERFORMABLE) Today 01/11/2024 7:56 EST QUANTIFERON TB GOLD PLUS Routine 01/11/2024 7:56 EST documented in this encounter Results * QUANTIFERON INTERPRETATION (PERFORMABLE) (01/11/2024 7:56 EST) [facility] Signature Quantiferon Interpretation Negative Negative 01/15/2024 13:10 EST [facility] Comment:No interferon-gamma response to M. tuberculosis antigens was detected. ??Infection with M. tuberculosis is unlikely. A single negative result does not exclude infection with M. tuberculosis. ??In patients at high risk for M. tuberculosis infection, a second test should be considered. TB1 Ag minus Nil 0.01 IU/ml 01/15/20 13:10 EST [facility] TB2 Ag minus Nil 0.01 IU/mL 01/15/20 13:10 EST [facility] Blood VENOUS BLOOD / Unknown 01/11/2024 7:56 EST 01/15/2024 13:04 EST us Provider Outr Resulting Lab IMMUNOLOGY AND SEROL OGY ORDERABLES Final Result Performing Organization Address [facility] de Phone Number [facility] [address] [place] [address] * QUANTIFERON MITOGEN (PERFORMABLE) (01/11/2024 7:56 EST) Blood VENOUS BLOOD / Unknown 01/11/2024 7:56 EST 01/12/2024 17:05 EST us Provider Outr Resulting Lab IMMUNOLOGY AND SEROL OGY ORDERABLES Final Result Performing Organization Address [facility] Co de Phone Number [facility] [address] [place] [address] * QUANTIFERON TB2 (PERFORMABLE) (01/11/2024 7:56 EST) Blood VENOUS BLOOD / Unknown 01/11/2024 7:56 EST 01/12/2024 17:05 EST us Provider Outr Resulting Lab IMMUNOLOGY AND SEROL OGY ORDERABLES Final Result Performing Organization Address [facility] Co de Phone Number [facility] [address] [place] [address] * QUANTIFERON TB1 (PERFORMABLE) (01/11/2024 7:56 EST) Blood VENOUS BLOOD / Unknown 01/11/2024 7:56 EST 01/12/2024 17:05 EST us Provider Outr Resulting Lab IMMUNOLOGY AND SEROL OGY ORDERABLES Final Result Performing Organization Address [facility] Co de Phone Number [facility] [address] [place] [address] * QUANTIFERON NIL (PERFORMABLE) (01/11/2024 7:56 EST) Blood VENOUS BLOOD / Unknown 01/11/2024 7:56 EST 01/12/2024 17:05 EST us Provider Outr Resulting Lab IMMUNOLOGY AND SEROL OGY ORDERABLES Final Result Performing Organization Address [facility]/ZIP Co de Phone Number [facility] [address] [place] [phone] documented in this encounter Visit Diagnoses Not on filedocumented in this encounter Care Teams Telephonic Rn Relationship Specialty Start Date End Date Carla López MD [address] [place] [address] PCP - General 09/25/15 documented as of this encounter
--- OUTSIDE RECORDS SUMMARY | 2024-11-22 01:15 | XMS_ITS | Encounter Summary ---
Author Organization [facility] Address [address] [place] [address] Care Team Providers Care Linen Room Custodian Name Role Phone Carla López MD Primary Care Provider [phone] Encounter Details Date Type Department Care Team (Late st Contact Info) Description 11/21/2016 Results Only [facility] [phone] Louise Carvalho MD [address] [place] [address] [place] [address] Social History Tobacco Use Types Packs/Day Years Used Date Smoking Tobacco: Never Assessed Comments Unknown Sex and Gender Information Value Date Recorded Sex Assigned at Not on file Legal Sex Female 18:39 EST Gender Identity Not on file Sexual Orientation Not on file documented as of this encounter Plan of Treatment Not on file documented as of this encounter Procedures Procedure Name Priority Date/Time Associated Diagnosis Comments PAP TEST- RESULT ONLY Routine 11/21/2016 0:00 EST documented in this encounter Results * PAP TEST- RESULT ONLY (11/21/2016 0:00 EST) Pathology Report: CYTOPATHOLOGY REPORT Reports generated via electronic interface contain original data; however they are lacking the format of the original report. Caution should be taken when reading/interpreti ng unformatted reports. Name: ? ANGELLA GRAY ? Accession #: ? [id number] ? : ? 1970 (Age: 46) ??F ?Collect Date: ? 11/21/2016 ? Location: ? [facility] ? Receive Date: ? 11/23/2016 ? Provider: LOUISE CARVALHO MD Copy to: CARLA LÓPEZ MD ? Final Report SPECIMEN ADEQUACY ? Satisfactory for Evaluation - transformation zone component present GENERAL CATEGORIZATION ? Negative for Intraepithelial Lesion or Malignancy ?? Last Menstrual Period: 11/12/2016 Specimen/Source: ??Pap Test, Cervix, ThinPrep Imaging System with manual evaluation Document reviewed and electronically signed by: ? TYREE Hinojosa(ASCP) ? Report ??Date: 11/25/2016 12:57 HPV with Pap Test ? Date Ordered: ? 11/25/2016 ? Status: ?? Signed Out ?Date Complete: ? 11/29/2016 ? By: ??System Interface ? Date Reported: ? 11/29/2016 ? Interpretation RESULT: Negative for HPV. No E6 or E7 mRNA is detected from HPV types 16,18,31,33,35, 39,45,51,52,56,58, 59,66, and 68 by dewaterer operator mediated amplification. Comments Document reviewed and electronically signed by: ? System Interface ? Report date: 11/29/2016 By the signature above, the attending physician certifies that he/she has personally conducted a gross and/or microscopic examination of the described specimens and rendered or confirmed the above diagnosis. End of Report [facility] 11/21/2016 11/23/2016 us Louise Carvalho MD PATHOLOGY ORDERABLES Final Resu lt [facility] [address] [place] [address] documented in this encounter Visit Diagnoses Not on filedocumented in this encounter Care Teams Linen Room Custodian Relationship Specialty Start Date End Date Carla López MD [address] [place] [address] PCP - General 09/25/15 documented as of this encounter
--- OUTSIDE RECORDS SUMMARY | 2024-11-22 01:15 | XMS_ITS | Encounter Summary ---
Author Organization [facility] Address [address] [place] [address] Care Team Providers Care Job Setter Honing Name Role Phone Carla López MD Primary Care Provider [phone] Encounter Details Date Type Department Care Team (Late st Contact Info) Description 05/31/2018 Results Only [facility] [phone] Natalia Good, [address] [place], [place] [id number] Social History Tobacco Use Types Packs/Day Years [...] Procedure Name Priority Date/Time Associated Diagnosis Comments SURGICAL PATHOLOGY Routine 05/31/2018 7:44 EDT documented in this encounter Results * SURGICAL PATHOLOGY (05/31/2018 7:44 EDT) Pathology Report: SURGICAL PATHOLOGY REPORT Reports generated via electronic interface contain original data; however they are lacking the format of the original report. Caution should be taken when reading/interpret ing unformatted reports. Name: ? ANGELLA GRAY ? Accession #: ? [id number] ? : ? 1970 (Age: 47) ??F ? Collect Date: ? 05/31/2018 ? Location: ? [facility] ? Receive Date: ? 06/01/2018 ? Provider: NATALIA GOOD DO Copy to: CARLA LÓPEZ MD ? Final Pathologic Diagnosis: A. TONSIL, RIGHT, TONSILECTOMY: - Tonsil with reactive follicular hyperplasia. B. TONSIL, LEFT, TONSILECTOMY: - Tonsil with reactive follicular hyperplasia. Document reviewed and electronically signed by: MARICRUZ HCAVEZ MD Report ??Date: 06/05/2018 15:49 By the signature above, the attending physician certifies that he/she has personally conducted a gross and/or microscopic examination of the described specimens and rendered or confirmed the above diagnosis. Specimen(s) Received: A. ??Right tonsil B. ??Left tonsil Clinical History: Chronic tonsillitis; clinical diagnosis code: ??J35.01, R07.00, B00.1, R09.89 Gross Description: A. ?Received in formalin labelled with proper patient identification (initials H, T) and 1. right tonsil is a palatine tonsil (2.3 x 1.5 x 0.6 cm). The mucosa is pisano-pink and hyperemic with prominent crypts. Sectioning reveals homogenous lobular tissue without abnormality. A client relations representative section is submitted in A1. B. ?Received in formalin labelled with proper patient identification (initials H, T) and 2. left tonsil is a palatine tonsil (2.6 x 1.9 x 1.0 cm). The mucosa is pisano-pink and hyperemic with prominent crypts. Sectioning reveals homogenous lobular tissue without abnormality. A client relations representative section is submitted in B1. KESHIA Cardozo (ASCP) 06/04/2018 9:26 AM End of Report [facility] 05/31/2018 7:44 EDT 06/01/2018 7:44 EDT us Natalia Good DO PATHOLOGY ORDERABLES Fi nal Result [facility] [address] [place] [address] documented in this encounter Visit Diagnoses Not on filedocumented in this encounter Care Teams Job Setter Honing Relationship Specialty Start Date End Date Carla López MD [address] [place] [address] PCP - General 09/25/15 documented as of this encounter
--- OUTSIDE RECORDS SUMMARY | 2024-11-22 01:15 | XMS_ITS | Encounter Summary ---
[place] [address] Care Team Providers Care Api Developer Name Role Phone Carla López MD Primary Care Provider [phone] Encounter Details Date Type Department Care Team (Latest Contact Info) Description 07/29/2024 Travel Social History Tobacco Use Types Packs/Day Years Used Date Smoking Tobacco: Former Cigarettes Q uit: 09/10/2002 Smokeless Tobacco: Never Sex and Gender Information Value Date Recorded Sex Assigned at Not on file Gender Identity Not on file Sexual Orientation Not on file documented as of this encounter Plan of Treatment Not on file documented as of this encounter Visit Diagnoses Not on filedocumented in this encounter Care Teams Api Developer Relationship Specialty Start Date End Date Carla López MD [address] [place] [address] PCP - General 10/05/10 documented as of this encounter
--- OUTSIDE RECORDS SUMMARY | 2024-11-22 01:15 | XMS_ITS | Encounter Summary ---
Author Organization [facility] Address [address] [place] [address] Care Team Providers Care Artist Model Name Role Phone Unavailable Primary Care Provider Unavailabl e Encounter Details Date Type Department Care Team (Late st Contact Info) Description 03/18/2009 Orders Only [facility] Laboratory Services - [facility] ([facility]) [address] [place] [address] Louise Carvalho MD [address] [place] [address] [place] [address] Social History Tobacco Use Types Packs/Day Years [...] Procedure Name Priority Date/Time Associated Diagnosis Comments CYTOPATHOLOGY Routine 03/18/2009 0:00 EDT documented in this encounter Results * CYTOPATHOLOGY (03/18/2009 0:00 EDT) Pathology Report: CYTOPATHOLOGY REPORT ? Reports generated via electronic interface contain original data; ? however they are lacking the format of the original report. ? Caution should be taken when reading/interpreti ng unformatted reports. ? Name: ? ANGELLA GRAY ? Accession #: ? [id number] ? : ? 1970 (Age: 38) ??F ?Collect Date: ? 03/18/2009 ? Location: ? [facility] ? Receive Date: ? 03/19/2009 ? Provider: ?LOUISE CARVALHO MD ? Copy to: ? Specimen/Source: ?Pap Test, Cervix/Endocervix, ThinPrep Imaging System ? with manual evaluation ? Last Menstrual Period: ? 04/15/09 ? Other: ? HPVA - HPV testing requested if ASC-US on the current ThinPrep Pap test. ? SPECIMEN ADEQUACY ? Satisfactory for Evaluation ? - transformation zone component present ? GENERAL CATEGORIZATION ? Negative for Intraepithelial Lesion or Malignancy ? Document reviewed and electronically signed by: ? Seamus Shahana, [place](ASCP) ? Report Date: ??03/23/2009 12:48 ? End of Report ? [facility] 03/18/2009 03/19/2009 us Louise Carvalho MD PATHOLOGY ORDERABLES Final Resu lt [facility] [address] [place] [address] documented in this encounter Visit Diagnoses Not on filedocumented in this encounter
--- OUTSIDE RECORDS SUMMARY | 2024-11-22 01:15 | XMS_ITS | Encounter Summary ---
Author Organization [facility] Address [address] [place] [address] Care Team Providers Care Commercial Fishing Vessel Operator Name Role Phone Unavailable Primary Care Provider Unavailabl e Encounter Details Date Type Department Care Team (Late st Contact Info) Description 12/29/2006 Results Only [facility] - Map conversion [address] [place] [address] Louise Carvalho MD [address] [place] [address] Social History Tobacco Use Types Packs/Day Years [...] Procedure Name Priority Date/Time Associated Diagnosis Comments HPV DETECTION, HIGH RISK TYPES Routine 12/29/2006 10:15 EST CYTOPATHOLOGY Routine 12/29/2006 0:00 EST documented in this encounter Results * HUMAN PAPILLOMA VIRUS DNA TEST (12/29/2006 10:15 EST) Specimen Description Cervix, ThinPrep vial [facility] Result Negative for HPV types 16, 18, 31, 33, 35, 39, 45, 51, 52, 56, 58, 59, and 68. [facility] Report Status Final [id number] [facility] 12/29/2006 10:1 5 EST 01/04/2007 10:09 EST us Louise Carvalho MD MICROBIOLOGY - GENERAL ORDERABL ES Final Result [facility] [address] [place] [address] * CYTOPATHOLOGY (12/29/2006 0:00 EST) Pathology Report: CYTOPATHOLOGY REPORT Reports generated via electronic interface contain original data; however they are lacking the format of the original report. Caution should be taken when reading/interpreti ng unformatted reports. Name: ? ANGELLA GRAY ? Accession #: ? [id number] : ? 1970 (Age: 36) ??F ?Collect Date: ? 12/29/2006 Location: ? [facility] ? Receive Date: ? 01/01/2007 Provider: ?LOUISE CARVALHO MD Copy to: ? Specimen/Source: ?ThinPrep Pap Test, Cervix/Endocervix, processed on [employer] ThinPrep Imaging System, with manual evaluation Last Menstrual Period: ? 12/15/06 Previous Gynecologic Pathology: ? Yes Other: ? HPVA - HPV testing requested if ASC-US on the current ThinPrep Pap test. ? SPECIMEN ADEQUACY ? Satisfactory for Evaluation - transformation zone component present GENERAL CATEGORIZATION ? Epithelial Cell Abnormality INTERPRETATION ? Squamous Cell Abnormality - Atypical squamous cells, undetermined significance (ASC-US). EDUCATIONAL NOTES/RECOMMENDATI ONS ? [facility] recommends following the 2001 Consensus Guidelines for the Management of Women with Cervical Cytological Abnormalities (HERMINIA,2002;287:212 0-9). Management algorithms have been distributed by [facility] and are available online at [email or web address]. ? Document reviewed and electronically signed by: ? Matheus Miller MD ? Report Date: ??01/03/2007 16:07 End of Report [facility] 12/29/2006 01/01/2007 us Louise Carvalho MD PATHOLOGY ORDERABLES Final Resu lt [facility] [address] [place] [address] documented in this encounter Visit Diagnoses Not on filedocumented in this encounter
--- OUTSIDE RECORDS SUMMARY | 2024-11-22 01:15 | XMS_ITS | Encounter Summary ---
[place] [address] Care Team Providers Care Bottle Line Worker Name Role Phone Carla López MD Primary Care Provider Reason for Referral * Diagnostic Test (Routine) - Closed Specialty Diagnoses / Procedures Referred By Contac t Referred To Contact Radiology Diagnoses Abdominal pain, right upper quadrant Procedures US Abdomen Limited Carla López MD [address] [place] [address] [facility] [place] [address] Referral ID Status Reason Start Date Expiration Date V isits Requested Visits Authorized [id number] Closed Specialty Service Requested 02/17/2023 08/19/2024 1 1 Reason for Visit * Diagnostic Test (Routine) - Closed Specialty Diagnoses / Procedures Referred By Contac t Referred To Contact Radiology Diagnoses Abdominal pain, right upper quadrant Procedures US Abdomen Limited Carla López MD [address] [place] [address] [facility] [place] [address] Referral ID Status Reason Start Date Expiration Date V isits Requested Visits Authorized [id number] Closed Specialty Service Requested 02/17/2023 08/19/2024 1 1 Encounter Details Date Type Department Care Team (Latest Contact Info) Description 02/27/2023 7:49 AM EDT - 02/27/2023 11:59 PM EDT Hospital En[place] [address] Carla López MD [address] [place] [address] Abdominal pain, right upper quadrant Discharge Disposition: Home Social History Tobacco Use Types Packs/Day Years Used Date Smoking Tobacco: Former Cigarettes Q uit: 09/10/2002 Smokeless Tobacco: Never Sex and Gender Information Value Date Recorded Sex Assigned at Not on file Gender Identity Not on file Sexual Orientation Not on file documented as of this encounter Medications at Time of Discharge Medication Sig Dispensed Refills Start Date End Date methylphenidate HCl (RITALIN) 10 mg Tablet TAKE ONE HALF TABLET BY MOUTH EVERY MORNING AND IN THE EVENING 0 08/16/2019 documented as of this encounter Plan of Treatment Not on file documented as of this encounter Procedures Procedure Name Priority Date/Time Associated Diagnosis Comments US ABDOMEN LIMITED Routine 02/27/2023 8: 39 AM EDT Abdominal pain, right upper quadrant documented in this encounter Results * US Abdomen Limited (02/27/2023 8:39 AM EDT) Anatomical Region Laterality Modality Abdomen Ultrasound 02/27/2023 8:38 AM EDT Impressions 02/27/2023 9:34 AM EDT Normal right upper quadrant ultrasound. No cholelithiasis or cholecystitis. Electronically signed by: Timmy Valladares MD, Radiology [facility] ([phone]), at 02/27/2023 9:27 AM Thank you for letting us participate in the care of this patient. If you are a health care provider and have any questions regarding this report, please contact the number above. For patients who have questions, please contact the health youth care professional that requested your imaging first. ?Timmy Valladares, Staff Physician Electronically Signed Final Report ?? 02/27/2023 09:34 am Narrative 02/27/2023 9:34 AM EDT Abdominal ? (Signed Final 02/27/2023 09:34 am) PATIENT INFO: ID #: ? [id number] ?: ??[birth year] (52 yrs)(F) Name: ? ANGELLA GRAY ?Visit Date: 02/27/2023 08:38 am PERFORMED BY: Attending: ?Timmy Valladares MD Performed By: ? oCri Valderrama RDMS Referred By: ?CARLA LÓPEZ Location: ? [facility] SERVICE(S) PROVIDED: UABDLIM - Abdominal Limited Survey Single ? [id number] Organ or Quadrant - [id number] INDICATIONS: Abdominal pain, right upper quadrant COMPARISON: No prior studies for comparison. ------ LIVER: ------ Right Lobe Length: ?? 18.4 ?? cm Echogenicity/Echotexture: ?? Normal GALLBLADDER: Cholelithiasis: ?No stones visualized Wall Thickness: ?2.0 mm Focal Tenderness: ?Negative sonographic Tobin's sign BILIARY TRACT: Intrahepatic Ducts: ?? Normal Extrahepatic Ducts: ?? Normal Common Duct Size: ? 2.0 ? mm --------- PANCREAS: --------- Head: ?Not visualized, obscured by ? Size: ?overlying bowel Tail: ?Poorly visualized due to ?Size: ?overlying bowel Body: ?Limited visualization due to ?Size: ?overlying bowel RIGHT KIDNEY: Size (cm) ?L: ??12.0 Cortical Thickness: ?Normal Cortical Echogenicity: ?? Normal Hydronephrosis: ?No sonographic evidence Comment: ?Single vascular calcification present, no stone. ------ AORTA: ------ Measurements (cm): Proximal ? AP: ?? 2.1 Comment: ?Limited visualization due to overlying bowel gas, ? normal in caliber where visualized. ---- IVC: ---- Normal in caliber where visualized. FLUID COLLECTIONS: No ascites seen in the imaged RUQ Procedure Note Timmy Valladares MD - 02/27/2023 Abdominal (Signed Final 02/27/2023 09:34 am) PATIENT INFO: ID #: [id number] : [birth year] (52 yrs)(F) Name: ANGELLA GRAY Visit Date: 02/27/2023 08:38 am PERFORMED BY: Attending: Timmy Valladares MD Performed By: Cori Valderrama RDMS Referred By: CARLA LÓPEZ Location: [facility] SERVICE(S) PROVIDED: UABDLIM - Abdominal Limited Survey Single [id number] Organ or Quadrant - [id number] INDICATIONS: Abdominal pain, right upper quadrant COMPARISON: No prior studies for comparison. ------ LIVER: ------ Right Lobe Length: 18.4 cm Echogenicity/Echotexture: Normal GALLBLADDER: Cholelithiasis: No stones visualized Wall Thickness: 2.0 mm Focal Tenderness: Negative sonographic Tobin's sign BILIARY TRACT: Intrahepatic Ducts: Normal Extrahepatic Ducts: Normal Common Duct Size: 2.0 mm --------- PANCREAS: --------- Head: Not visualized, obscured by Size: overlying bowel Tail: Poorly visualized due to Size: overlying bowel Body: Limited visualization due to Size: overlying bowel RIGHT KIDNEY: Size (cm) L: 12.0 Cortical Thickness: Normal Cortical Echogenicity: Normal Hydronephrosis: No sonographic evidence Comment: Single vascular calcification present, no stone. ------ AORTA: ------ Measurements (cm): Proximal AP: 2.1 Comment: Limited visualization due to overlying bowel gas, normal in caliber where visualized. ---- IVC: ---- Normal in caliber where visualized. FLUID COLLECTIONS: No ascites seen in the imaged RUQ IMPRESSION Normal right upper quadrant ultrasound. No cholelithiasis or cholecystitis. Electronically signed by: Timmy Valladares MD, [facility] ([phone]), at 02/27/2023 9:27 AM Thank you for letting us participate in the care of this patient. If you are a health care provider and have any questions regarding this report, please contact the number above. For patients who have questions, please contact the health youth care professional that requested your imaging first. Timmy Valladares, Staff Physician Electronically Signed Final Report 02/27/2023 09:34 am Carla López MD IMG US GEN ORDERABLE S documented in this encounter Visit Diagnoses Diagnosis Abdominal pain, right upper quadrant documented in this encounter Care Teams Bottle Line Worker Relationship Specialty Start Date End Date Carla López MD [address] [place] [address] PCP - General 10/05/10 documented as of this encounter
--- OUTSIDE RECORDS SUMMARY | 2024-11-22 01:15 | XMS_ITS | Encounter Summary ---
Author Organization [facility] [place] [address] Care Team Providers Care Biochemist Name Role Phone Carla López MD Primary Care Provider [phone] Encounter Details Date Type Department Care Team (Latest Contact Info) Description 11/04/2020 8:39 AM EST - 11/04/2020 11:59 PM EST Hospital Encounter Mammography/[place] [address] Stephanie Helms APRN [facility] [place] [address] Breast mass, right Discharge Disposition: Home Social History Tobacco Use [...] Procedure Name Priority Date/Time Associated Diagnosis Comments MAMMO SCREENING CAD AND PAUL BILATERAL Routine 11/04/2020 8:55 AM EST Breast mass, right documented in this encounter Results * Mammo Screening Cad and Paul Bilateral (11/04/2020 8:55 AM EST) Anatomical Region Laterality Modality Breast Bilateral Mammography Narrative 11/04/2020 9:28 AM EST BILATERAL MAMMOGRAPHY REASON FOR EXAM: Screening TECHNIQUE: CC and MLO views were obtained of each breast using standard 2-D mammography as well as 3-D tomosynthesis. Computer aided detection was used. This is compared with prior images. FINDINGS: There are scattered areas of fibroglandular density. There are no suspicious microcalcifications, masses, or areas of distortion. The pattern is stable. CONCLUSION: No mammographic evidence of malignancy. RECOMMENDATION: Regular screening mammograms starting between age 40 and 50 reduces the risk of from breast cancer. All screening tests have both risks and benefits. These risks and benefits should be assessed for each individual patient through discussion with their provider to determine their preferred breast cancer screening schedule. Women should report any breast changes to a health care provider right away. Some women, because of their family history, a genetic tendency, or other factors, should be screened with annual breast MRI as well as with mammograms. (The number of women who fall into this category is very small). Patients and health care providers should discuss each patient? s history to decide if earlier screening and/or breast MRI are appropriate. Screening should continue as long as a woman is in good health and is expected to live 10 years or longer. Screening mammography may not detect 10-15% of breast cancers. A result letter has been sent to this patient by the [facility]. BIRADS CATEGORY 1: NEGATIVE Stephanie Helms MANAGER PROGRAMS IMG MAMMO ORDERABLE S documented in this encounter Visit Diagnoses Diagnosis Breast mass, right Lump or mass in breast documented in this encounter Care Teams Biochemist Relationship Specialty Start Date End Date Carla López MD [address] [place] [address] PCP - General 10/05/10 documented as of this encounter
--- OUTSIDE RECORDS SUMMARY | 2024-11-22 01:15 | XMS_ITS | Encounter Summary ---
Author Organization [facility] Address [address] [place] [address] Care Team Providers Care Head Buyer Tobacco Name Role Phone Unavailable Primary Care Provider Unavailabl e Encounter Details Date Type Department Care Team (Late st Contact Info) Description 03/13/2008 Results Only [facility] conversion [address] [place] [address] Louise Carvalho MD [address] [place] [address] Social History Tobacco Use Types Packs/Day Years [...] Comments HPV DETECTION, HIGH RISK TYPES Routine 03/13/2008 13:40 EDT CYTOPATHOLOGY Routine 03/13/2008 0:00 EDT documented in this encounter Results * HUMAN PAPILLOMA VIRUS DNA TEST (03/13/2008 13:40 EDT) Specimen Description Cervix, ThinPrep vial [facility] Result Negative for HPV types 16, 18, 31, 33, 35, 39, 45, 51, 52, 56, 58, 59, and 68. [facility] Report Status Final [id number] [facility] 03/13/2008 13:4 0 EDT 03/19/2008 23:24 EDT us Louise Carvalho MD MICROBIOLOGY - GENERAL ORDERABL ES Final Result [facility] [address] [place] [address] * CYTOPATHOLOGY (03/13/2008 0:00 EDT) Pathology Report: CYTOPATHOLOGY REPORT Reports generated via electronic interface contain original data; however they are lacking the format of the original report. Caution should be taken when reading/interpreti ng unformatted reports. Name: ? ANGELLA GRAY ? Accession #: ? [id number] : ? 1970 (Age: 37) ??F ?Collect Date: ? 03/13/2008 Location: ? [facility] ? Receive Date: ? 03/14/2008 Provider: ?LOUISE CARVALHO MD Copy to: ? Specimen/Source: ?ThinPrep Pap Test, Cervix/Endocervix, processed on [employer] ThinPrep Imaging System, with manual evaluation Last Menstrual Period: ? Other: ? HPVDX - HPV testing requested regardless of diagnosis on current ThinPrep Pap test. ? SPECIMEN ADEQUACY ? Satisfactory for Evaluation - transformation zone component present GENERAL CATEGORIZATION ? Negative for Intraepithelial Lesion or Malignancy ? Document reviewed and electronically signed by: ? TYREE Driscoll(ASCP) ? Report Date: ??03/19/2008 09:55 End of Report [facility] 03/13/2008 03/14/2008 us Louise Carvalho MD PATHOLOGY ORDERABLES Final Resu lt Performing Organization Address City/State/[facility] Co de Phone Number [facility] [address] [place] [address] documented in this encounter Visit Diagnoses Not on filedocumented in this encounter
--- OUTSIDE RECORDS SUMMARY | 2024-11-22 01:15 | XMS_ITS | Encounter Summary ---
[place] [address] Care Team Providers Care Airline Reservation Agent Name Role Phone Carla López MD Primary Care Provider Encounter Details Date Type Department Care Team (Latest Contact Info) Description 06/23/2023 Travel Social History Tobacco Use Types Packs/Day [...] on filedocumented in this encounter Care Teams Airline Reservation Agent Relationship Specialty Start Date End Date Carla López MD [address] [place] [address] PCP - General 10/05/10 documented as of this encounter
--- OUTSIDE RECORDS SUMMARY | 2024-11-22 01:15 | XMS_ITS | Encounter Summary ---
Author Organization [facility] [place] [address] Care Team Providers Care Sports Medicine Trainer Name Role Phone Carla López MD Primary Care Provider Encounter Details Date Type Department Care Team (Late st Contact Info) Description 12/08/2016 Ancillary Procedure Radiology Library at [facility] [place] [id number] Carla López MD [address] [place], [place] [id number] Social History Tobacco Use Types Packs/Day Years Used Date Smoking Tobacco: Never Assessed Sex and Gender Information Value Date Recorded Sex Assigned at Not on file Gender Identity Not on file Sexual Orientation Not on file documented as of this encounter Plan of Treatment Not on file documented as of this encounter Procedures Procedure Name Priority Date/Time Associated Diagnosis Comments FILM LIBRARY STORAGE ONLY MAMMO Routine 12/08/2016 12:00 AM EST documented in this encounter Results * Film Library- Storage Only Mammo (12/08/2016 12:00 AM EST) Narrative [facility] - 08/19/2019 1:40 PM EDT This exam is auto-finalizing. It's purpose is for storage only. Carla López MD IMG FILM LIBRARY ORD ERABLES [facility] [place] documented in this encounter Visit Diagnoses Not on filedocumented in this encounter Care Teams Sports Medicine Trainer Relationship Specialty Start Date End Date Carla López MD [address] [place] [address] PCP - General 10/05/10 documented as of this encounter
--- OUTSIDE RECORDS SUMMARY | 2024-11-22 01:15 | XMS_ITS | Encounter Summary ---
Author Organization [facility] [place] [address] Care Team Providers Care Dowel Pin Worker Name Role Phone Carla López MD Primary Care Provider Reason for Visit * Reason Onset Date Comments Medication Refill 05/20/2024 Encounter Details Date Type Department Care Team (Late st Contact Info) Description 05/20/2024 Refill Dermatology at [facility] [address] [place] [address] Elle Kevin MD [facility] [place] [address] Other eczema Social History Tobacco Use Types Packs/Day Years Used Date Smoking Tobacco: Former Cigarettes Q uit: 09/10/2002 Smokeless Tobacco: Never Sex and Gender Information Value Date Recorded Sex Assigned at Not on file Gender Identity Not on file Sexual Orientation Not on file documented as of this encounter Plan of Treatment Not on file documented as of this encounter Visit Diagnoses Diagnosis Other eczema documented in this encounter Care Teams Dowel Pin Worker Relationship Specialty Start Date End Date Carla López MD [address] [place] [address] PCP - General 10/05/10 documented as of this encounter
--- OUTSIDE RECORDS SUMMARY | 2024-11-22 01:15 | XMS_ITS | Encounter Summary ---
Author Organization [facility] Address [address] [place] [address] Care Team Providers Care Salon Stylist Name Role Phone Carla López MD Primary Care Provider [phone] Encounter Details Date Type Department Care Team (Late st Contact Info) Description 11/18/2021 Lab Requisition [facility] Pathology & Laboratory Medicine - [facility] [address] [place], [place] [address] Outr Resulting Lab, Provider Social History Tobacco [...] Procedure Name Priority Date/Time Associated Diagnosis Comments ZZCOVID-19 TEST [facility] PCR Today 11/18/2021 9:30 EST COVID-19 TESTING Routine 11/18/2021 9:30 EST documented in this encounter Results * COVID-19 TEST [facility] PCR (11/18/2021 9:30 EST) Swab 11/18/2021 9:30 EST 11/18/2021 22:04 EST us Provider Outr Resulting Lab MICROBIOLOGY - GENER AL ORDERABLES Final Result [facility] [address] [place] [address] * COVID-19 TESTING (11/18/2021 9:30 EST) COVID-19 rt-PCR Result Negative Negative 11/19/2021 12:25 EST [facility] Comment: This test has not been FDA cleared or approved. This test has been authorized by FDA under an EUA for use by authorized laboratories. This test has been authorized only for detection of nucleic acid from 2019-nCoV, not for any other viruses or pathogens. This test is only authorized for the duration of the declaration that circumstances exist justifying the authorization of emergency use of in vitro diagnostic tests for detection and/or diagnosis of 2019-nCoV under section 564(b)(1) of Act, 21 U.S.C ?? 360bbb-3(b) (1), unless the authorization is terminated or revoked sooner. Negative results do not preclude 2019-nCoV infection and should not be used as the sole basis for treatment or other patient management decisions. Negative results must be combined with clinical observations, patient history, and epidemiological information. Testing was performed using the len SARS-CoV-2 assay ([employer] on the Len 6800 System Performing Lab Len [address] [facility] Lab 11/19/2021 12:25 EST [facility] Swab 11/18/2021 9:30 EST 11/18/2021 22:04 EST us Provider Outr Resulting Lab MICROBIOLOGY - GENER AL ORDERABLES Final Result [facility] [address] [place] [address] documented in this encounter Visit Diagnoses Not on filedocumented in this encounter Care Teams Salon Stylist Relationship Specialty Start Date End Date Carla López MD [address] [place], [place] [address] PCP - General 09/25/15 documented as of this encounter
--- OUTSIDE RECORDS SUMMARY | 2024-11-22 01:15 | XMS_ITS | Encounter Summary ---
[place] [address] Care Team Providers Care Fuel Cell Battery Technician Name Role Phone Carla López MD Primary Care Provider Encounter Details Date Type Department Care Team (Latest Contact Info) Description 07/30/2024 Travel Social History Tobacco Use Types Packs/Day [...] on filedocumented in this encounter Care Teams Fuel Cell Battery Technician Relationship Specialty Start Date End Date Carla López MD [address] [place] [address] PCP - General 10/05/10 documented as of this encounter
--- OUTSIDE RECORDS SUMMARY | 2024-11-22 01:15 | XMS_ITS | Encounter Summary ---
Author Organization [facility] [place] [address] Care Team Providers Care Contact Lens Lathe Operator Name Role Phone Carla López MD Primary Care Provider Encounter Details Date Type Department Care Team (Late st Contact Info) Description 02/12/2015 Ancillary Procedure Radiology Library at [facility] [place] [phone] Carla López MD [address] [place], [place] [address] Social History Tobacco Use Types Packs/Day Years [...] Comments FILM LIBRARY STORAGE ONLY MAMMO Routine 02/12/2015 12:00 AM EDT documented in this encounter Results * Film Library- Storage Only Mammo (02/12/2015 12:00 AM EDT) Narrative [facility] - 08/19/2019 1:39 PM EDT This exam is auto-finalizing. It's purpose is for storage only. Carla López MD IMG FILM LIBRARY ORD ERABLES [place], [place] documented in this encounter Visit Diagnoses Not on filedocumented in this encounter Care Teams Contact Lens Lathe Operator Relationship Specialty Start Date End Date Carla López MD [address] [place] [address] PCP - General 10/05/10 documented as of this encounter
--- OUTSIDE RECORDS SUMMARY | 2024-11-22 01:15 | XMS_ITS | Encounter Summary ---
Author Organization [facility] Address [address] [place] [address] Care Team Providers Care Interior Design Project Manager Name Role Phone Carla López MD Primary Care Provider [phone] Encounter Details Date Type Department Care Team (Latest Contact Info) Description 05/31/2018 14:31 EDT - 05/31/2018 23:59 EDT Hospital Encounter [address] [address] Unknown, Provider, MD Discharge Disposition: Home or Self Care Social History Tobacco Use Types Packs/Day Years Used Date Smoking Tobacco: Never Assessed Comments Unknown Sex and Gender Information Value Date Recorded Sex Assigned at Not on file Legal Sex Female 18:39 EST Gender Identity Not on file Sexual Orientation Not on file documented as of this encounter Discharge Disposition Disposition Code Departure Means Destination Home or Self Detention documented in this encounter Plan of Treatment Not on file documented as of this encounter Visit Diagnoses Not on filedocumented in this encounter Care Teams Interior Design Project Manager Relationship Specialty Start Date End Date Carla López MD [address] [place] [address] PCP - General 09/25/15 documented as of this encounter
--- OUTSIDE RECORDS SUMMARY | 2024-11-22 01:15 | XMS_ITS | Encounter Summary ---
Author Organization [facility] Address [address] [place] [address] Care Team Providers Care Benefits Representative Name Role Phone Carla López MD Primary Care Provider Encounter Details Date Type Department Care Team (Late st Contact Info) Description 07/08/2023 Lab Requisition [facility] Pathology & Laboratory Medicine - [facility] [address] [place] [address] Carla López MD [address] [place] [id number] Encounter for other general examination Social History Tobacco Use Types Packs/Day Years [...] Priority Date/Time Associated Diagnosis Comments SURGICAL PATHOLOGY Today 07/07/2023 8: 45 EDT Encounter for other general examination documented in this encounter Results * SURGICAL PATHOLOGY (07/07/2023 8:45 EDT) Note to Patient The following pathology results have been interpreted by your pathologist and may be available to you before your health provider has had the opportunity to review them. Please allow time for your provider to receive these results and explore management options, if applicable. 07/11/2023 9:43 EDT [facility] Final Diagnosis A. SKIN OF TAYLOR, LEFT, PUNCH BIOPSY: - Subacute-chronic spongiotic dermatitis. See comment. 07/11/2023 9:43 [facility] Diagnosis Comment The biopsy shows features of spongiotic (eczematous) dermatitis with superimposed changes of lichenification. Given the clinical history, the features could represent nummular eczema. Other forms of eczematous dermatitis would be included in the differential diagnosis. Irritant dermatitis would also be a consideration given the presence of a few necrotic keratinocytes within the superficial epidermis. Correlation with the clinical history is recommended. 07/11/2023 9:43 [facility] Attestation By the signature below, the attending physician certifies that they have 1) personally conducted a gross and/or microscopic examination of the described specimen(s), and/or personally interpreted the results of laboratory testing of the described specimen(s), and 2) personally rendered or confirmed the above diagnosis. 07/11/2023 9:43 [facility] at 0943 Microscopic Description Sections consist of a punch biopsy of skin to the deep reticular dermis. The stratum corneum has confluent parakeratosis. The epidermis shows irregular acanthosis with elongated and thickened rete ridges. There is mild spongiosis with lymphocytic exocytosis. Occasional necrotic cells are noted within the superficial stratum spinosum. The dermis has a moderately dense perivascular lymphomononuclear infiltrate. Some of the papillae have thickened bundles of collagen. 07/11/2023 9:43 [facility] Clinical History Slowly spreading, dry, scaly, thickened lesion L taylor approximately 3 cm in diameter, not pruritic 07/11/2023 9:43 [facility] Gross Description A. Received in formalin labelled with proper patient identification (initials H, T) and L taylor is a punch biopsy of pisano skin (0.3 cm in diameter by 0.2 cm in depth). The specimen is submitted intact in A1. KESHIA LOYD(ASCP) 07/10/2023 9:47 07/11/2023 9:43 [facility] Performing Lab [facility] 07/11/2023 9:43 [facility] Scanned Images 07/11/2023 9:43 EDT [facility] Tissue SPECIMEN FROM SKIN / Unknown 07/07/2023 8:45 EDT 07/08/2023 10:15 EDT us Carla López MD PATHOLOGY ORDERABLES Final Resu lt [facility] [address] [place] [address] documented in this encounter Visit Diagnoses Diagnosis Encounter for other general examination documented in this encounter Care Teams Benefits Representative Relationship Specialty Start Date End Date Carla López MD [address] [place] [address] PCP - General 09/25/15 documented as of this encounter
--- OUTSIDE RECORDS SUMMARY | 2024-11-22 01:15 | XMS_ITS | Encounter Summary ---
Author Organization [facility] Address [address] [place] [address] Care Team Providers Care Manager Social Media Name Role Phone Unavailable Primary Care Provider Unavailabl e Encounter Details Date Type Department Care Team (Late st Contact Info) Description 12/10/2013 Results Only [facility] Laboratory Services - [facility] [address] [place], [place] [id number] Louise Carvalho MD [address] [address] [place] [address] Social History Tobacco Use Types Packs/Day Years [...] Diagnosis Comments PAP TEST- RESULT ONLY Routine 12/10/2013 0:00 EST documented in this encounter Results * PAP TEST- RESULT ONLY (12/10/2013 0:00 EST) Pathology Report: CYTOPATHOLOGY REPORT Reports generated via electronic interface contain original data; however they are lacking the format of the original report. Caution should be taken when reading/interpreti ng unformatted reports. Name: ? ANGELLA GRAY ? Accession #: ? [id number] ? : ? 1970 (Age: 43) ??F ?Collect Date: ? 12/10/2013 ? Location: ? [facility] ? Receive Date: ? 12/11/2013 ? Provider: LOUISE CARVALHO MD Copy to: LOGAN BERRY MD ? Final Report SPECIMEN ADEQUACY ? Satisfactory for Evaluation - transformation zone component present GENERAL CATEGORIZATION ? Negative for Intraepithelial Lesion or Malignancy ?? Last Menstrual Period: 12/03/13 Previous Gynecologic Pathology: ASC-US: H/O Other: Additional clinical information: CERVICITIS Specimen/Source: ??Pap Test, Cervix/Endocervix, ThinPrep Imaging System with manual evaluation Document reviewed and electronically signed by: ? Adonis Kan, CT(ASCP) ? Report ??Date: 12/13/2013 14:25 HPV with Pap Test ? Date Ordered: ? 12/13/2013 ? Status: ?? Signed Out ?Date Complete: ? 12/17/2013 ? By: ??System Interface ? Date Reported: ? 12/17/2013 ? Interpretation RESULT: Negative for HPV. No E6 or E7 mRNA is detected from HPV types 16,18,31,33,35, 39,45,51,52,56,58, 59,66, and 68 by dragsaw operator mediated amplification. Comments Document reviewed and electronically signed by: ? System Interface ? Report date: 12/17/2013 By the signature above, the attending physician certifies that he/she has personally conducted a gross and/or microscopic examination of the described specimens and rendered or confirmed the above diagnosis. End of Report [facility] 12/10/2013 12/11/2013 us Louise Carvalho MD PATHOLOGY ORDERABLES Final Resu lt [facility] [address] [place] [address] documented in this encounter Visit Diagnoses Not on filedocumented in this encounter
--- OUTSIDE RECORDS SUMMARY | 2024-11-22 01:15 | XMS_ITS | Encounter Summary ---
Author Organization [facility] Address [address] [place] [address] Care Team Providers Care Endoscopy Support Specialist Name Role Phone Carla López MD Primary Care Provider [phone] Encounter Details Date Type Department Care Team (Late st Contact Info) Description 12/25/2019 Lab Requisition [facility] Pathology & Laboratory Medicine - [address] [address] Kelsea Flores MD [address] [place] [address],[address] [place] [address] Encounter for other general examination Social History [...] Date/Time Associated Diagnosis Comments SURGICAL PATHOLOGY Today 12/25/2019 9: 05 EST Encounter for other general examination documented in this encounter Results * SURGICAL PATHOLOGY (12/25/2019 9:05 EST) Final Diagnosis A. UTERUS, CERVIX, AND FALLOPIAN TUBES, HYSTERECTOMY AND BILATERAL SALPINGECTOMY: - Endometrium: - Secretory. - Myometrium: - Adenomyosis. - Leiomyoma (0.6 cm maximal dimension). - Cervix: - No specific pathologic features. - Serosa: - No specific pathologic features. - Fallopian tubes: - Paratubal cysts. 12/27/2019 16:56 EST [facility] at 1656 Clinical History Symptomatic uterine fibroids 12/27/2019 16:56 [facility] Attestation By the signature below, the attending physician certifies that they have 1) personally conducted a gross and/or microscopic examination of the described specimen(s), and/or personally interpreted the results of laboratory testing of the described specimen(s), and 2) personally rendered or confirmed the above diagnosis. 12/27/2019 16:56 [facility] at 1656 Gross Description A. Received in formalin labelled with proper patient identification (initials H, T) and uterus, left fallopian tube, right fallopian tube? is an intact 155 g uterus having the following dimensions: cervix to fundus-10.0 cm, cornu to cornu-5.9 cm, and up to 5.9 cm in anterior-posterio r dimension. The serosa is without adhesions. The cervix measures 2.7 cm in diameter and displays a patent os. The endocervical canal is reticulated pisano. The endometrium is pisano to pale brown and ranges from 0.1 to 0.2 cm in thickness. Sections through the anterior myometrium show a well demarcated 4.0 cm nodular area consistent with adenomyosis. The posterior myometrium contains a single 0.6 cm in diameter white whorled nodule. Areas of hemorrhage and necrosis are not identified within the nodule. Received detached are undesignated bilateral fallopian tube segments, 2.5 and 4.9 cm in length. The serosal surfaces are dull babin-purple. The longer tube segment contains intact clear fluid-filled thin-walled cysts up to 0.4 cm in diameter. Sections through both tube segments show an intact wall and pinpoint lumen. [facility] sections are submitted as follows: BLOCK CAUSEY A1- anterior cervix A2-A3- bisected full-thickness anterior endomyometrium A4- posterior cervix A5-A6- posterior endomyometrium to include myometrial nodule A7-A8- shorter fallopian tube, entirely submitted A9-A10- longer fallopian tube to include entire distal end and one central cross-section Dennise Jang 12/26/2019 12:22 12/27/2019 16:56 [facility] Scanned Images 12/27/2019 16:56 EST [facility] Tissue SPECIMEN FROM UTERUS / Unknown 12/25/2019 9:05 EST 12/25/2019 19:32 EST us Kelsea Flores MD PATHOLOGY ORDERABLES Final Res ult [facility] [address] [place] [address] documented in this encounter Visit Diagnoses Diagnosis Encounter for other general examination documented in this encounter Care Teams Endoscopy Support Specialist Relationship Specialty Start Date End Date Carla López MD [address] [place] [address] PCP - General 09/25/15 documented as of this encounter
--- OUTSIDE RECORDS SUMMARY | 2024-11-22 01:15 | XMS_ITS | Encounter Summary ---
Author Organization [facility] [place] [address] Care Team Providers Care Lawyer Real Estate Name Role Phone Carla López MD Primary Care Provider Encounter Details Date Type Department Care Team (Late st Contact Info) Description 02/05/2015 Ancillary Procedure Radiology Library at [facility] [place] [phone] Carla López MD [address] [place], [place] [address] Social History Tobacco Use Types Packs/Day Years [...] Comments FILM LIBRARY STORAGE ONLY MAMMO Routine 02/05/2015 12:00 AM EDT documented in this encounter Results * Film Library- Storage Only Mammo (02/05/2015 12:00 AM EDT) Narrative [facility] - 08/19/2019 1:38 PM EDT This exam is auto-finalizing. It's purpose is for storage only. Carla López MD IMG FILM LIBRARY ORD ERABLES [place], [place] documented in this encounter Visit Diagnoses Not on filedocumented in this encounter Care Teams Lawyer Real Estate Relationship Specialty Start Date End Date Carla López MD [address] [place] [address] PCP - General 10/05/10 documented as of this encounter
--- OUTSIDE RECORDS SUMMARY | 2024-11-22 01:15 | XMS_ITS | Encounter Summary ---
[place] [address] Care Team Providers Care Automobile Rental Clerk Name Role Phone Carla López MD Primary Care Provider [phone] Encounter Details Date Type Department Care Team (Latest Contact Info) Description 02/27/2023 Travel Social History Tobacco Use Types Packs/Day [...] on filedocumented in this encounter Care Teams Automobile Rental Clerk Relationship Specialty Start Date End Date Carla López MD [address] [place] [address] PCP - General 10/05/10 documented as of this encounter
--- OUTSIDE RECORDS SUMMARY | 2024-11-22 01:15 | XMS_ITS | Encounter Summary ---
Author Organization [facility] [place] [address] Care Team Providers Care Wallpaper Remover Steam Name Role Phone Carla López MD Primary Care Provider Encounter Details Date Type Department Care Team (Late st Contact Info) Description 08/02/2019 Ancillary Procedure Radiology Library at [facility] [place] [phone] Carla López MD [address] [place], [place] [id number] Social History Tobacco Use Types Packs/Day Years [...] Comments FILM LIBRARY STORAGE ONLY MAMMO Routine 08/02/2019 12:00 AM EDT documented in this encounter Results * Film Library- Storage Only Mammo (08/02/2019 12:00 AM EDT) Narrative [facility] - 08/19/2019 1:41 PM EDT This exam is auto-finalizing. It's purpose is for storage only. Carla López MD IMG FILM LIBRARY ORD ERABLES [place], [place] documented in this encounter Visit Diagnoses Not on filedocumented in this encounter Care Teams Wallpaper Remover Steam Relationship Specialty Start Date End Date Carla López MD [address] [place] [address] PCP - General 10/05/10 documented as of this encounter
--- OUTSIDE RECORDS SUMMARY | 2024-11-22 01:15 | XMS_ITS | Encounter Summary ---
[place] [address] Care Team Providers Care Demand Equipment Repairer Name Role Phone Carla López MD Primary Care Provider Encounter Details Date Type Department Care Team (Latest Contact Info) Description 01/04/2024 Travel Social History Tobacco Use Types Packs/Day [...] on filedocumented in this encounter Care Teams Demand Equipment Repairer Relationship Specialty Start Date End Date Carla López MD [address] [place] [address] PCP - General 10/05/10 documented as of this encounter
--- OUTSIDE RECORDS SUMMARY | 2024-11-22 01:15 | XMS_ITS | Encounter Summary ---
Author Organization [facility] Address [address] [place] [address] Care Team Providers Care Inspector Purchased Parts Name Role Phone Carla López MD Primary Care Provider [phone] Encounter Details Date Type Department Care Team (Late st Contact Info) Description 04/30/2020 Lab Requisition [facility] Pathology & Laboratory Medicine - [facility] [address] [place], [place] [id number] Outr Resulting Lab, Provider Social History Tobacco [...] Procedure Name Priority Date/Time Associated Diagnosis Comments DO NOT ORDER STANDALONE - [facility] COVID TEST Today 04/30/2020 9:00 EDT COVID-19 TESTING Routine 04/30/2020 9:00 EDT documented in this encounter Results * DO NOT ORDER STANDALONE - [facility] COVID TEST (04/30/2020 9:00 EDT) COVID-19 rt-PCR Result NEGATIVE Negative 05/02/2020 3:18 EDT [facility] Comment: 2019-novel Coronavirus (2019-nCoV) not detected by the qRT-PCR assay. Consider testing for other respiratory viruses or re-collecting for 2019-nCoV testing. Note: Optimum timing for peak viral levels during infections caused by 2019-nCoV have not been determined. Collection of multiple specimens from the same patient may be necessary to detect the virus. Limitations Positive results are indicative of active infection with SARS-CoV-2 but do not rule out bacterial infection or co-infection with other viruses. The agent detected may not be the definite cause of disease. In addition, detection of viral RNA may not indicate the presence of infectious virus or that SARS-CoV-2 is the causative agent for clinical symptoms. Negative results do not preclude SARS-CoV-2 infection and should not be used as the sole basis for patient management decisions. Negative results must be combined with clinical observations, patient history, and epidemiological information. False negative results may also occur if amplification inhibitors are present in the specimen or if inadequate numbers of organisms are present in the specimen. Optimum specimen types and timing for peak viral levels during infections caused by SARS-CoV-2 have not been fully determined. Collection of multiple specimens (types and time points) from the same patient may be necessary to detect the virus. The test was validated for use with upper respiratory specimens obtained via nasopharyngeal or oropharyngeal swabs in VTM, UTM, M4, M5, M6, saline, and MTM media. The performance of this test has not been established for other specimens. Specimens collected using other FDA recommended Specimen Collection Materials listed in the FDA COVID-19 Diagnostic [employer] communication (February 06, 2020) are processed with the caveat that they were not all validated for use with this test and the result must be interpreted in this context. Furthermore, a false negative results may occur if a specimen is improperly collected, transported or handled. If the virus mutates in the RT-PCR target region, SARS-CoV-2 may not be detected or may be detected less predictably. Inhibitors or other types of interference may produce a false negative result. An interference study evaluating the effect of common cold medications was not performed. This test is not FDA-cleared but its performance characteristics were established by our CLIA-certified, CAP-accredited, high complexity laboratory in accordance with CLIA regulations, [employer] (CAP) guidelines (Jan 30, 2020), and FDA guidance (Jan 11, 2020). This test is only for use under the Food and Drug Administration's Emergency Use Authorization. Swab ENTIRE NASOPHARYNX / Unknown 04/30/2020 9:00 EDT 04/30/2020 16:12 EDT us Provider Outr Resulting Lab MICROBIOLOGY - GENER AL ORDERABLES Final Result [facility] [place], [place] * COVID-19 TESTING (04/30/2020 9:00 EDT) COVID-19 rt-PCR Result NEGATIVE Negative 05/02/2020 7:31 EDT [facility] Comment: 2019-novel Coronavirus (2019-nCoV) not detected by the qRT-PCR assay. Consider testing for other respiratory viruses or re-collecting for 2019-nCoV testing. Note: Optimum timing for peak viral levels during infections caused by 2019-nCoV have not been determined. Collection of multiple specimens from the same patient may be necessary to detect the virus. Limitations Positive results are indicative of active infection with SARS-CoV-2 but do not rule out bacterial infection or co-infection with other viruses. The agent detected may not be the definite cause of disease. In addition, detection of viral RNA may not indicate the presence of infectious virus or that SARS-CoV-2 is the causative agent for clinical symptoms. Negative results do not preclude SARS-CoV-2 infection and should not be used as the sole basis for patient management decisions. Negative results must be combined with clinical observations, patient history, and epidemiological information. False negative results may also occur if amplification inhibitors are present in the specimen or if inadequate numbers of organisms are present in the specimen. Optimum specimen types and timing for peak viral levels during infections caused by SARS-CoV-2 have not been fully determined. Collection of multiple specimens (types and time points) from the same patient may be necessary to detect the virus. The test was validated for use with upper respiratory specimens obtained via nasopharyngeal or oropharyngeal swabs in VTM, UTM, M4, M5, M6, saline, and MTM media. The performance of this test has not been established for other specimens. Specimens collected using other FDA recommended Specimen Collection Materials listed in the FDA COVID-19 [employer] communication (February 06, 2020) are processed with the caveat that they were not all validated for use with this test and the result must be interpreted in this context. Furthermore, a false negative results may occur if a specimen is improperly collected, transported or handled. If the virus mutates in the RT-PCR target region, SARS-CoV-2 may not be detected or may be detected less predictably. Inhibitors or other types of interference may produce a false negative result. An interference study evaluating the effect of common cold medications was not performed. This test is not FDA-cleared but its performance characteristics were established by our CLIA-certified, CAP-accredited, high complexity laboratory in accordance with CLIA regulations, [employer] (CAP) guidelines (Jan 30, 2020), and FDA guidance (Jan 11, 2020). This test is only for use under the Food and Drug Administration's Emergency Use Authorization. Performing Lab [facility] 05/02/2020 7:31 EDT [facility] Swab 04/30/2020 9:00 EDT 04/30/2020 16:12 EDT us Provider Outr Resulting Lab MICROBIOLOGY - GENER AL ORDERABLES Final Result [facility] [address] [place] [address] [facility] [place], [place] documented in this encounter Visit Diagnoses Not on filedocumented in this encounter Care Teams Inspector Purchased Parts Relationship Specialty Start Date End Date Carla López MD [address] [place] [address] PCP - General 09/25/15 documented as of this encounter
--- OUTSIDE RECORDS SUMMARY | 2024-11-22 01:15 | XMS_ITS | Encounter Summary ---
Author Organization [facility] [place] [address] Care Team Providers Care Campaign Consultant Name Role Phone Carla López MD Primary Care Provider Encounter Details Date Type Department Care Team (Late st Contact Info) Description 08/15/2019 Orders Only Hematology [place] [address] Stephanie Helms APRN [facility] [place] [id number] Breast lump Social History Tobacco Use Types Packs/Day Years Used Date Smoking Tobacco: Never Assessed Sex and Gender Information Value Date Recorded Sex Assigned at Not on file Gender Identity Not on file Sexual Orientation Not on file documented as of this encounter Plan of Treatment Not on file documented as of this encounter Visit Diagnoses Diagnosis Breast lump Lump or mass in breast documented in this encounter Care Teams Campaign Consultant Relationship Specialty Start Date End Date Carla López MD [address] [place] [address] PCP - General 10/05/10 documented as of this encounter
--- OUTSIDE RECORDS SUMMARY | 2024-11-22 01:15 | XMS_ITS | Encounter Summary ---
[place] [address] Care Team Providers Care Rn Emergency Name Role Phone Carla López MD Primary Care Provider [phone] Reason for Visit * Reason Comments Establish Care * Consultation (Routine) - Closed Specialty Diagnoses / Procedures Referred By Delmar montelongo Referred To Contact Hematology and Oncology Diagnoses Breast lump Carla López MD [address] [place] [address] [facility] Hem Onc [address] [place] [address] Referral ID Status Reason Start Date Expiration Date Visits Re quested Visits Authorized [id number] Closed 08/19/2019 08/18/2020 1 1 Encounter Details Date Type Department Care Team (Late st Contact Info) Description 09/10/2019 8:30 AM EDT Office Visit [place] [address] Stephanie Helms APRN [facility] [place] [address] Breast mass, right Social History Tobacco Use Types Packs/Day Years Used Date Smoking Tobacco: Former Cigarettes Q uit: 09/10/2002 Smokeless Tobacco: Never Sex and Gender Information Value Date Recorded Sex Assigned at Not on file Gender Identity Not on file Sexual Orientation Not on file documented as of this encounter Last Filed Vital Signs Vital Sign Reading Time Taken Comments Blood Pressure 133/91 09/10/2019 8:16 AM EDT Pulse 59 09/10/2019 8:16 AM EDT Temperature 36.3 ??C (97.4 ??F) 09/10/2019 8:16 AM ED T Respiratory Rate 14 09/10/2019 8:16 AM EDT Oxygen Saturation 100% 09/10/2019 8:16 AM EDT Inhaled Oxygen Concentration - - Weight 57 kg (125 lb 9.6 oz) 09/10/2019 8:16 AM EDT Height 152.4 cm (5') 09/10/2019 8:16 AM EDT Body Mass Index 24.53 09/10/2019 8:16 AM EDT documented in this encounter Progress Notes * Stephanie Helms, ROTARY OPERATOR - 09/10/2019 8:30 AM EDT Ms. Hartley is a 48 y.o. year-old patient I am seeing at the request of Carla López MD to evaluate a mass in the right breast. Ms. Hartley appreciated this on self exam about 2 months ago. She noted an area of thickening in upperouter quadrant. She had screening mammogram in July and thought she could see an area of concern. She admittedly does not trust the local radiologist department. She denies any skin changes, breast trauma, prior breast surgery or nipple discharge. Imaging performed (bilateral mammogram) at [facility] on 08/02/19 was interpreted as Category cat 1. She does have dense breast tissue. She is scheduled for breast ultrasound later this week. She does have a history of cystic breast tissue, she has not had cysts aspirated in the past. She did have a breast biopsy in her early 20's that was benign, she isunsure of which breast. She does do occasional self-breast exams. Weight stable. She exercises 5-6 hours a week. Competes in triathlons. She has no new or concerning complaints of fatigue, cardiovascular or respiratory symptoms. All other ROS are negative. ?? Reproductive History: P2 , had her first child at the age of 27 and did nurse her children. Menarche began at 14 . Her LMP was 2 weeks ago, heavy and long. HRT/OC: none ?? Family History: Negative for breast or ovarian cancer. ?? Social History: She is . She does not smoke. ?? Past Medical History: Noncontributory. ?? Past Surgical History: Noncontributory ?? Physical Exam: She looks well and is in no apparent distress. Her skin is anicteric with good turgor. Sclera are anicteric. Her head and neck are without masses or adenopathy. Her arms have good ROM without any evidence of lymphedema. Her breasts are asymmetric with her right being slightly larger than her left. Her nipples are everted. There is no axillary adenopathy on the right or the left. There are no skin changes or dimpling noted in either breast. The right breast is notable for generally heterogenous breast tissue, without discrete masses. Her left breast exam is similar in character to her right breast, without discrete masses. ?? AMBER RISK: 5 year: 1.4 % Lifetime: 12.3 % ? Assessment: Clinical breast exam notable for fibrocystic breast tissue without discrete masses. Likely hormonal related changes in her breast tissue. Lifetime AMBER Risk insufficently high to warrant adjunctive MRI at this time. (<20%) ?? Plan: I have discussed my assessment and recommendations with Ms. Hartley to include occasional self-breast exams and annual clinical breast exams. I do not feel she needs an ultrasound at this time. She agrees. She would like to continue to be seen in my clinic annually with imaging. She will also contact me if she develops any new masses in her breast. I will see her next July with screening mammogram. Stephanie Helms APRN ? documented in this encounter Plan of Treatment Not on file documented as of this encounter Results * Mammo Screening Cad [...] Center. BIRADS CATEGORY 1: NEGATIVE Stephanie Helms APRN IMG MAMMO ORDERABLE S documented in this encounter Visit Diagnoses Diagnosis Breast mass, right Lump or mass in breast Breast mass, right Lump or mass in breast documented in this encounter Care Teams Rn Emergency Relationship Specialty Start Date End Date Carla López MD [address] [place] [address] PCP - General 10/05/10 documented as of this encounter
--- OUTSIDE RECORDS SUMMARY | 2024-11-22 01:15 | XMS_ITS | Encounter Summary ---
Author Organization [facility] [place] [address] Care Team Providers Care Wafer Fabrication Technician Name Role Phone Carla López MD Primary Care Provider Encounter Details Date Type Department Care Team (Late st Contact Info) Description 08/08/2013 Ancillary Procedure Radiology Library at [facility] [place] [id number] Carla López MD [address] [place], [place] [address] Social History Tobacco Use Types Packs/Day Years [...] Comments FILM LIBRARY STORAGE ONLY MAMMO Routine 08/08/2013 12:00 AM EDT documented in this encounter Results * Film Library- Storage Only Mammo (08/08/2013 12:00 AM EDT) Narrative AMELIA - 08/19/2019 1:37 PM EDT This exam is auto-finalizing. It's purpose is for storage only. Carla López MD IMG FILM LIBRARY ORD ERABLES [place], [place] documented in this encounter Visit Diagnoses Not on filedocumented in this encounter Care Teams Wafer Fabrication Technician Relationship Specialty Start Date End Date Carla López MD [address] [place] [address] PCP - General 10/05/10 documented as of this encounter
--- OUTSIDE RECORDS SUMMARY | 2024-11-22 01:15 | XMS_ITS | Encounter Summary ---
Author Organization [facility] Address [address] [place] [address] Care Team Providers Care Fish Butcher Name Role Phone Carla López MD Primary Care Provider [phone] Encounter Details Date Type Department Care Team (Late st Contact Info) Description 11/10/2020 Lab Requisition [facility] Pathology & Laboratory Medicine - [address] [address] Outr Resulting Lab, Provider Social History Tobacco [...] Comments ZZCOVID-19 TEST [facility] PCR Today 11/09/2020 9:24 EST COVID-19 TESTING Routine 11/09/2020 9:24 EST documented in this encounter Results * COVID-19 TEST [facility] PCR (11/09/2020 9:24 EST) Swab ENTIRE NASOPHARYNX / Unknown 11/09/2020 9:24 EST 11/10/2020 15:47 EST us Provider Outr Resulting Lab MICROBIOLOGY - GENER AL ORDERABLES Final Result [facility] [address] [place] [address] * COVID-19 TESTING (11/09/2020 9:24 EST) COVID-19 rt-PCR Result Negative Negative 11/10/2020 20:43 EST [facility] Comment: This test has not [...] clinical observations, patient history, and epidemiological information. Performed on the [employer] Fusion instrument Performing Lab [facility] 11/10/2020 20:43 EST [facility] Swab 11/09/2020 9:24 EST 11/10/2020 15:47 EST us Provider Outr Resulting Lab MICROBIOLOGY - GENER AL ORDERABLES Final Result [facility] [address] [place] [address] documented in this encounter Visit Diagnoses Not on filedocumented in this encounter Care Teams Fish Butcher Relationship Specialty Start Date End Date Carla López MD [address] [place] [address] PCP - General 09/25/15 documented as of this encounter
--- OUTSIDE RECORDS SUMMARY | 2024-11-22 01:15 | XMS_ITS | Encounter Summary ---
Author Organization [facility] Address [address] [place] [address] Care Team Providers Care Circus Artist Name Role Phone Unavailable Primary Care Provider Unavailabl e Encounter Details Date Type Department Care Team (Late st Contact Info) Description 02/02/2012 Results Only [facility] ([facility]) [address] [place], [place] [id number] Louise Carvalho MD [address] [place] [address] [place] [address] Social History Tobacco Use Types Packs/Day Years [...] Diagnosis Comments PAP TEST- RESULT ONLY Routine 02/02/2012 0:00 EDT documented in this encounter Results * PAP TEST- RESULT ONLY (02/02/2012 0:00 EDT) Pathology Report: CYTOPATHOLOGY REPORT Reports generated via electronic interface contain original data; however they are lacking the format of the original report. Caution should be taken when reading/interpreti ng unformatted reports. Name: ? ANGELLA GRAY ? Accession #: ? [id number] : ? 1970 (Age: 41) ??F ?Collect Date: ? 02/02/2012 Location: ? [facility] ? Receive Date: ? 02/03/2012 Provider: ?LOUISE CARVLAHO MD Copy to: ? Specimen/Source: ?Pap Test, Cervix/Endocervix, ThinPrep Imaging System with manual evaluation Last Menstrual Period: ? 06/23/10 Previous Gynecologic Pathology: ? ASC-US: 12/20 negative HPv Other: ? Additional clinical information: 03/20, 03/21 wnl ? SPECIMEN ADEQUACY ? Satisfactory for Evaluation - transformation zone component present GENERAL CATEGORIZATION ? Negative for Intraepithelial Lesion or Malignancy ? Document reviewed and electronically signed by: ? Rona Medina, CT(ASCP) ? Report Date: ??02/07/2012 10:59 End of Report [facility] 02/02/2012 02/03/2012 us Louise Carvalho MD PATHOLOGY ORDERABLES Final Resu lt [facility] [address] [place] [address] documented in this encounter Visit Diagnoses Not on filedocumented in this encounter
--- OUTSIDE RECORDS SUMMARY | 2024-11-22 01:15 | XMS_ITS | Encounter Summary ---
Author Organization [facility] Address [address] [place] [address] Care Team Providers Care Solar Photovoltaic Installer Name Role Phone Carla López MD Primary Care Provider [phone] Encounter Details Date Type Department Care Team (Late st Contact Info) Description 02/18/2023 Lab Requisition [facility] Pathology & Laboratory Medicine - [facility] [address] [place], [place] [address] Outr Resulting Lab, Provider Social History Tobacco [...] Procedure Name Priority Date/Time Associated Diagnosis Comments PTH INTACT Routine 02/17/2023 12:30 EDT documented in this encounter Results * PTH INTACT (02/17/2023 12:30 EDT) Intact PTH 57 19 - 88 pg/mL 02/19/2023 9:36 EDT [facility] Blood VENOUS BLOOD / Unknown 02/17/2023 12:30 EDT 02/18/2023 21:29 EDT us Provider Outr Resulting Lab CHEMISTRY & BLOOD GA S ORDERABLES Final Result [facility] [address] [place] [address] documented in this encounter Visit Diagnoses Not on filedocumented in this encounter Care Teams Solar Photovoltaic Installer Relationship Specialty Start Date End Date Carla López MD [address] [place] [address] PCP - General 09/25/15 documented as of this encounter
--- OUTSIDE RECORDS SUMMARY | 2024-11-22 01:15 | XMS_ITS | Encounter Summary ---
[place] [address] Care Team Providers Care Diagnostic Tech Name Role Phone Carla López MD Primary Care Provider [phone] Encounter Details Date Type Department Care Team (Latest Contact Info) Description 09/28/2020 1:27 PM EST - 09/28/2020 11:59 PM EST [place] [address] Discharge Disposition: Home Social History Tobacco Use [...] MORNING AND IN THE EVENING 0 08/16/2019 DAILY MULTI-VITAMIN ORAL 04/05/2010 documented as of this encounter Plan of Treatment Not on file documented as of this encounter Procedures Procedure Name Priority Date/Time Associated Diagnosis Comments COVID-19 PCR Routine 09/28/2020 12:03 PM EST documented in this encounter Results * COVID-19 PCR (09/28/2020 12:03 PM EST) SARS-CoV-2 RNA Not Detected Not Detected [facility] Comment: This result should be interpreted in combination with the clinical observations, patient history and epidemiological information in making a final diagnosis. For testing of asymptomatic individuals, assay performance characteristics and clinical utility have not been evaluated. Testing for SARS-CoV-2 (Severe acute respiratory syndrome coronavirus 2, formerly known as 2019 novel coronavirus or 2019-nCoV) to aid in the diagnosis of COVID-19 is performed using the [employer] RealTime SARS-CoV-2 Assay as authorized by the FDA Emergency Use Authorization (EUA). This EUA assay is intended for In-vitro Diagnostic (IVD) use with respiratory specimens such as nasopharyngeal swabs collected from individuals during the acute phase of infection. This assay is performed based on the instructions for use provided by [employer] and additional guidance provided by CDC and FDA. Testing is performed in the [facility] within the Department of Pathology and Laboratory Medicine at [facility], certified under the Clinical Laboratory Improvement Amendments of 1988 (CLIA), 42 U.S.C. 263a, to perform high complexity tests. Assay performance has been verified according to clinical laboratory regulatory requirements for use with specimens collected from individuals suspected of COVID-19. Test results are provided above. A result of ? Not Detected? indicates that the viral RNA target is not present above the limit of detection, but does not preclude SARS-CoV-2 infection. False negative results may occur if a specimen is improperly collected, transported or handled; if amplification inhibitors are present; or if inadequate numbers of viral particles are present in the specimen. When a diagnostic test is negative, the possibility of a false negative result should be considered in the context of a patient? s recent exposures and the presence of clinical signs and symptoms consistent with COVID-19. A result of ? Detected? indicates that RNA from SARS-CoV-2 was detected and the patient is infected. As required or requested by public health authorities, positive specimens may be sent for additional testing. Positive and negative predictive values for this test are highly dependent on disease prevalence. A result of ? Invalid? indicates that neither the viral RNA targets nor the internal control target was detected. An invalid result suggests the presence of inhibitors. Recollection and re-testing is recommended in the case of an invalid result. CDC COVID-19 criteria for testing on human specimens and clinical management guidance information are available at the CDC Coronavirus Disease 2019 (COVID-19) webpage under ? Information for Healthcare Professionals? (https://www.cdc.gov/coronavirus/2019-ncov/hcp/index.html) Additional information about this and other EUA tests can be found in provider and patient fact sheets at the following FDA website: https://www.fda.gov/medical-devices/rwilumpacaq-kribmza-3663-zxpbt-53-dcdrksrlg- use-a lfpcubppbjsbu-fiyytke-mziviar/faltw-zlidsmfbqzo-wplv SARS-CoV-2 RNA Source Nasal [facility] Specimen from nose (specimen) Other / Unknown 09/28/2020 12:03 PM EST 09/30/2020 1:36 AM EST Narrative Resulting Agency Comment Spec In Lab Lea Allan APRN MOLECULAR ORDERABLE S Performing Organization Address City/State/[facility] Co de Phone Number [facility] [place] [address] documented in this encounter Visit Diagnoses Not on filedocumented in this encounter Care Teams Diagnostic Tech Relationship Specialty Start Date End Date Carla López MD [address] [place] [address] PCP - General 10/05/10 documented as of this encounter
--- OUTSIDE RECORDS SUMMARY | 2024-11-22 01:15 | XMS_ITS | Clinical Summary ---
Author Organization [facility] [place] [address] Care Team Providers Care Tank Car Inspector Name Role Phone Carla López MD Primary Care Provider Allergies Active Allergy Reactions Criticality Noted Date Comments Clindamycin Nausea And Vomiting 09/10/2019 Medications Medication Sig Dispensed Refills Start Date End Date Status methylphenidate HCl (RITALIN) 10 mg Tablet TAKE ONE HALF TABLET BY MOUTH EVERY MORNING AND IN THE EVENING 0 08/16/2019 Active augmented betamethasone dipropionate (Diprolene-AF) 0.05 % OintmentIndications:Ot her eczema apply topically twice daily for two weeks and then take one week off. Recommend applying under occlusion at night. 50 g 3 05/21/2024 Active Active Problems Problem Noted Date Diagnosed Date Breast mass, right 09/10/2019 Family History Medical History Relation Comments Breast Cancer Neg Hx Social History Tobacco Use Types Packs/Day Years Used Date Smoking Tobacco: Former Cigarettes Q uit: 09/10/2002 Smokeless Tobacco: Never Sex and Gender Information Value Date Recorded Sex Assigned at Not on file Gender Identity Not on file Sexual Orientation Not on file Last Filed Vital Signs Vital Sign Reading Time Taken Comments Blood Pressure 144/102 11/04/2020 9:22 AM EST took it twice different arms Pulse 63 11/04/2020 9:22 AM EST Temperature 37.1 ??C (98.7 ??F) 11/04/2020 9 :22 AM EST Respiratory Rate 16 11/04/2020 9:22 AM EST Oxygen Saturation 99% 11/04/2020 9:2 2 AM EST Inhaled Oxygen Concentration - - Weight 53.5 kg (118 lb) 11/04/2020 9:22 AM EST Height 152.4 cm (5') 11/04/2020 9:22 AM EST Body Mass Index 23.05 11/04/2020 9:22 AM EST Plan of Treatment Health Maintenance Due Date Last Done Comments CT Colonography 1971 Colonoscopy 1971 Colorectal Cancer Screening 1970 FIT DNA 1971 FIT 1971 Sigmoidoscopy (10 year) with FIT yearly 1970 Sigmoidoscopy 1971 HIV screen 1989 Hepatitis C Screening 1989 Hepatitis B vaccine (0-59 yrs) (1) 1990 Tetanus/Diphtheria/Pertussis Vaccines (1 - Tdap) 1990 HPV test 2001 PAP Smear 2001 Breast Cancer Share Decision Needed 2011 Zoster vaccine (1 of 2) 2021 Covid-19 Vaccine (2 - season) 2024 Influenza (Flu) vaccine (1 o f 1 - Influenza standard series) 07/14/2024 Breast Cancer screening 07/30/2026 07/30/20 24, 06/23/2023, 11/04/2020 Procedures Procedure Name Priority Date/Time Associated Diagnosis Comments MAMMO SCREENING CAD AND PAUL BILATERAL Routine 07/30/2024 9:50 AM EDT Visit for screening mammogram from Last 3 Months or Most Recently Relevant to Health Maintenance Results * Mammo Screening Cad and Paul Bilateral (07/30/2024 9:50 AM EDT) WORKSTATION ID [id number] 2 DH RAD Anatomical Region Laterality Modality Breast Bilateral Mammography Impressions 07/31/2024 8:40 AM EDT No mammographic evidence of malignancy. Routine screening mammography is recommended. FINAL ASSESSMENT: BI-RADS Category 1: Negative * ??Regular screening mammograms starting at age 40 reduce the risk of from breast cancer. * ??Individuals should discuss the risks and benefits with their provider to determine their preferred breast cancer screening schedule, and at what age screening should stop. * ??Individuals should report any breast changes to a health care provider right away. * ??Some Individuals, because of their family history, a genetic tendency, or other factors, should consider being screened with annual breast MRI as well as with mammograms. * ??Screening mammography may not detect 10-15% of?breast cancers. Thank you for letting us participate in the care of this patient. ??If you are a health care provider and have any questions regarding this report, please contact the number below. ??For patients who have questions please contact the health child care supervisor that requested your imaging first. ? Electronically signed by: Amada Honeycutt MD, [facility] ??([phone]), at 07/31/2024 8:40 AM [facility] [place] [address] [place] ??[id number] Narrative 07/31/2024 8:40 AM EDT EXAMINATION: MAMMO SCREENING CAD AND PAUL BILATERAL REASON FOR EXAM: Screening TECHNIQUE: CC and MLO views were obtained of BOTH breasts. 2D and 3D tomosynthesis images were obtained. Computer aided detection was used. COMPARISON: Comparison was made to the prior relevant examinations. BREAST DENSITY: There are scattered areas of fibroglandular density. FINDINGS: There are no suspicious microcalcifications, masses, or areas of distortion. Stable appearance. Carla López MD IMG MAMMO ORDERABLES from Last 3 Months or Most Recently Relevant to Health Maintenance Care Teams Tank Car Inspector Relationship Specialty Start Date End Date Carla López MD [address] [place], [place] [address] PCP - General 10/05/10
--- OUTSIDE RECORDS SUMMARY | 2024-11-22 01:15 | XMS_ITS | Encounter Summary ---
[place] [address] Care Team Providers Care Psychologists Name Role Phone Carla López MD Primary Care Provider [phone] Encounter Details Date Type Department Care Team (Latest Contact Info) Description 07/30/2024 9:29 AM EDT - 07/30/2024 11:59 PM EDT Hospital Encounter Mammography/[place] [address] Carla López MD [address] [place], [place] [id number] Visit for screening mammogram Discharge Disposition: Home Social History Tobacco Use Types Packs/Day Years Used Date Smoking Tobacco: Former Cigarettes Q uit: 09/10/2002 Smokeless Tobacco: Never Sex and Gender Information Value Date Recorded Sex Assigned at Not on file Gender Identity Not on file Sexual Orientation Not on file documented as of this encounter Medications at Time of Discharge Medication Sig Dispensed Refills Start Date End Date augmented betamethasone dipropionate (Diprolene-AF) 0.05 % OintmentIndications:Other eczema apply topically twice daily for two weeks and then take one week off. Recommend applying under occlusion at night. 50 g 3 05/21/2024 methylphenidate HCl (RITALIN) 10 mg Tablet TAKE ONE HALF TABLET BY MOUTH EVERY MORNING AND IN THE EVENING 0 08/16/2019 documented as of this encounter Plan of Treatment Not on file documented as of this encounter Procedures Procedure Name Priority Date/Time Associated Diagnosis Comments MAMMO SCREENING CAD AND PAUL BILATERAL Routine 07/30/2024 9:50 AM EDT Visit for screening mammogram documented in this encounter Results * Mammo Screening Cad and Paul Bilateral (07/30/2024 9:50 AM EDT) WORKSTATION ID [id number] 2 RAD Anatomical Region Laterality Modality Breast Bilateral [...] who have questions please contact the health clinical care leader that requested your imaging first. ? [facility] [place] [address] [place] ??[id number] Narrative 07/31/2024 8:40 AM EDT EXAMINATION: MAMMO [...] appearance. Carla López MD IMG MAMMO ORDERABLES documented in this encounter Visit Diagnoses Diagnosis Visit for screening mammogram Other screening mammogram documented in this encounter Care Teams Psychologists Relationship Specialty Start Date End Date Carla López MD [address] [place] [address] PCP - General 10/05/10 documented as of this encounter
--- OUTSIDE RECORDS SUMMARY | 2024-11-22 01:15 | XMS_ITS | Encounter Summary ---
Author Organization [facility] [place] [address] Care Team Providers Care Sports Teacher Name Role Phone Carla López MD Primary Care Provider [phone] Encounter Details Date Type Department Care Team (Late st Contact Info) Description 11/04/2020 9:50 AM EST Office [place] [id number] Stephanie Helms APRN [facility] [place] [address] Encounter for screening mammogram for breast cancer Social History Tobacco Use Types Packs/Day Years [...] Mass Index 23.05 11/04/2020 9:22 AM EST documented in this encounter Progress Notes * Stephanie Helms, ASSOCIATE PROFESSOR OF BIOSTATISTICS - 11/04/2020 9:50 AM EST Ms. Hartley is a 50 y.o. patient I am seeing in follow up. I saw her in August of 2019 for a concern in her right breast. Imaging at the time was normal. She denies any skin changes, breast trauma, prior breast surgery or nipple discharge. Imaging performed (bilateral mammogram) at [facility] on 08/02/19 was interpreted as Category cat 1. She does have scattered dense breast tissue. She does have a history of cystic [...] her children. Menarche began at 14 . HRT/OC: none ?? Family History: Negative for breast or ovarian cancer. ?? Social History: She is . She does not smoke. ?? Past Medical History: Noncontributory. ?? Past Surgical History: Hysterectomy in December of 2019 for abnormal uterine bleeding. Ovaries intact. ?? Physical Exam: She looks well and [...] 5 year: 1.4 % Lifetime: 12.3 % ?? Mammogram today is cat 1 Assessment: Clinical breast exam notable for fibrocystic breast tissue without discrete masses. Lifetime AMBER Risk insufficently high to warrant adjunctive MRI at this time. (<20%) ?? Plan: I have discussed my assessment and recommendations with Ms. Hartley to include occasional self-breast exams and annual clinical breast exams. She would like to continue to be seen in my clinic annually with imaging. I will see her next October with screening mammogram. Stephanie Helms APRN ? documented in this encounter Plan of Treatment Not on file documented as of this encounter Visit Diagnoses Diagnosis Encounter for screening mammogram for breast cancer documented in this encounter Care Teams Sports Teacher Relationship Specialty Start Date End Date Carla López MD [address] [place] [address] PCP - General 10/05/10 documented as of this encounter
--- OUTSIDE RECORDS SUMMARY | 2024-11-22 01:15 | XMS_ITS | Encounter Summary ---
Author Organization [facility] Address [address] [place] [address] Care Team Providers Care Fiber Optic Assembly Worker Name Role Phone Carla López MD Primary Care Provider [phone] Encounter Details Date Type Department Care Team (Late st Contact Info) Description 09/24/2021 Lab Requisition [facility] Pathology & Laboratory Medicine - [address] [address] Outr Resulting Lab, Provider Social History Tobacco [...] Comments ZZCOVID-19 TEST [facility] PCR Today 09/24/2021 9:15 EST COVID-19 TESTING Routine 09/24/2021 9:15 EST documented in this encounter Results * COVID-19 TEST [facility] PCR (09/24/2021 9:15 EST) Swab 09/24/2021 9:15 EST 09/24/2021 21:19 EST us Provider Outr Resulting Lab MICROBIOLOGY - GENER AL ORDERABLES Final Result [facility] [address] [place] [address] * COVID-19 TESTING (09/24/2021 9:15 EST) COVID-19 rt-PCR Result Negative Negative 09/25/2021 0:37 EST [facility] Comment: This test has [...] history, and epidemiological information. Performed on the uMix.TVher Fusion instrument Performing Lab [facility] 09/25/2021 0:37 EST [facility] Swab 09/24/2021 9:15 EST 09/24/2021 21:19 EST us Provider Outr Resulting Lab MICROBIOLOGY - GENER AL ORDERABLES Final Result [facility] [address] [place] [address] documented in this encounter Visit Diagnoses Not on filedocumented in this encounter Care Teams Fiber Optic Assembly Worker Relationship Specialty Start Date End Date Carla López MD [address] [place] [address] PCP - General 09/25/15 documented as of this encounter
--- OUTSIDE RECORDS SUMMARY | 2024-11-22 01:15 | XMS_ITS | Encounter Summary ---
Author Organization [facility] Address [address] [place] [address] Care Team Providers Care Toeing Stockings Name Role Phone Carla López MD Primary Care Provider [phone] Encounter Details Date Type Department Care Team (Late st Contact Info) Description 10/27/2020 Lab Requisition [facility] Pathology & Laboratory Medicine - [facility] [address] [place], [place] [address] Outr Resulting Lab, Provider Social History Tobacco [...] ORDER STANDALONE - BROAD COVID TEST Today 10/26/2020 10:35 EST COVID-19 TESTING Routine 10/26/2020 10:3 5 EST documented in this encounter Results * DO NOT ORDER STANDALONE - BROAD COVID TEST (10/26/2020 10:35 EST) COVID-19 rt-PCR Result NEGATIVE Negative 10/29/2020 20:27 EST [facility] Comment: 2019-novel Coronavirus (2019-nCoV) [...] in accordance with CLIA regulations, [employer] [place] [employer] (CAP) guidelines (Jan 30, 2020), and FDA guidance (Jan 11, 2020). This test is only for use under the Food and Drug Administration's Emergency Use Authorization. Swab ENTIRE NASOPHARYNX / Unknown 10/26/2020:35 EST 10/27/2020 16:10 EST us Provider Outr Resulting Lab MICROBIOLOGY - GENER AL ORDERABLES Final Result [facility] [place], [place] * COVID-19 TESTING (10/26/2020 10:35 EST) COVID-19 rt-PCR Result NEGATIVE Negative 10/29/2020 21:34 EST [facility] Comment: 2019-novel Coronavirus (2019-nCoV) not [...] in accordance with CLIA regulations, [employer] [place] [employer] (CAP) guidelines (Jan 30, 2020), and FDA guidance (Jan 11, 2020). This test is only for use under the Food and Drug Administration's Emergency Use Authorization. Performing Lab [facility] 10/29/2020 21:34 EST [facility] Swab 10/26/2020 10:3 5 EST 10/27/2020 16:10 EST us Provider Outr Resulting Lab MICROBIOLOGY - GENER AL ORDERABLES Final Result [facility] [address] [place], [place] [id number] [place] [address] LABORATORY [place], [place] documented in this encounter Visit Diagnoses Not on filedocumented in this encounter Care Teams Toeing Stockings Relationship Specialty Start Date End Date Carla López MD [address] [place] [address] PCP - General 09/25/15 documented as of this encounter
--- OUTSIDE RECORDS SUMMARY | 2024-11-22 01:15 | XMS_ITS | Encounter Summary ---
[place] [address] Care Team Providers Care Wildlife Conservation Professor Name Role Phone Carla López MD Primary Care Provider [phone] Encounter Details Date Type Department Care Team (Latest Contact Info) Description 06/23/2023 11:44 AM EDT - 06/23/2023 11:59 PM EDT Hospital Encounter Mammography/[place] [address] Crala López MD [address] [place], [place] [id number] Screening mammogram for breast cancer Discharge Disposition: Home Social History Tobacco Use [...] MAMMO SCREENING CAD AND PAUL BILATERAL Routine 06/23/2023 12:00 PM EDT Screening mammogram for breast cancer documented in this encounter Results * Mammo Screening Cad and Paul Bilateral (06/23/2023 12:00 PM EDT) Anatomical Region Laterality Modality Breast Bilateral Mammography Narrative 06/23/2023 12:03 PM EDT BILATERAL MAMMOGRAPHY REASON FOR EXAM: Screening TECHNIQUE: CC and MLO views were obtained of each breast using standard 2-D mammography as well as 3-D tomosynthesis. Computer aided detection was used. This is compared with prior images. FINDINGS: ??The breasts are heterogeneously dense, which may obscure small masses. There are no suspicious microcalcifications, masses, or areas of distortion. The pattern is stable. CONCLUSION: No mammographic evidence of malignancy. RECOMMENDATION: Regular screening mammograms starting at age 40 reduces the risk of from breast cancer. [...] other factors, should consider being screened with an annual breast MRI as well as with [...] [facility]. BIRADS CATEGORY 1: NEGATIVE Electronically signed by: Jazmyn Whittaker MD Carla López MD IMG MAMMO ORDERABLES documented in this encounter Visit Diagnoses Diagnosis Screening mammogram for breast cancer documented in this encounter Care Teams Wildlife Conservation Professor Relationship Specialty Start Date End Date Carla López MD [address] [place] [address] PCP - General 10/05/10 documented as of this encounter
--- OUTSIDE RECORDS SUMMARY | 2024-11-22 01:15 | XMS_ITS | Encounter Summary ---
Author Organization [facility] [place] [address] Care Team Providers Care Pleat Patternmaker Name Role Phone Carla López MD Primary Care Provider Reason for Referral * Consultation (Routine) - Authorized Specialty Diagnoses / Procedures Referred By Contac t Referred To Contact Dermatology Diagnoses Disorder of skin and subcutaneous tissue ONGOING RASH RAJAN, BX SHOWS SPONGIOTIC DERMATITIS, NOT RESPONDING TO TOPICAL STEROIDS aCrla López MD [address] [place] [address] [facility] [address] [place] [address] Referral ID Status Reason Start Date Expiration Date Visits Requested Visits Authorized [id number] Authorized Consult, Test & Treat PCP Updated and/or Approved 11/28/2023 11/27/2024 6 6 Encounter Details Date Type Department Care Team (Latest Contact Info) Description 11/28/2023 Transcribe Orders eDH Incoming Referrals [phone] Carla López MD [address] [place] [address] Disorder of skin and subcutaneous tissue Social History Tobacco Use Types Packs/Day Years Used Date Smoking Tobacco: Former Cigarettes Q uit: 09/10/2002 Smokeless Tobacco: Never Sex and Gender Information Value Date Recorded Sex Assigned at Not on file Gender Identity Not on file Sexual Orientation Not on file documented as of this encounter Plan of Treatment Scheduled Referrals Name Type Priority Associated Diagnoses Orde r Schedule Referral to Dermatology Outpatient Referral Routine Disorder of skin and subcutaneous tissue Ordered: 11/28/2023 documented as of this encounter Visit Diagnoses Diagnosis Disorder of skin and subcutaneous tissue Unspecified disorder of skin and subcutaneous tissue documented in this encounter Care Teams Pleat Patternmaker Relationship Specialty Start Date End Date Carla López MD [address] [place] [address] PCP - General 10/05/10 documented as of this encounter
--- OUTSIDE RECORDS SUMMARY | 2024-11-22 01:15 | XMS_ITS | Encounter Summary ---
Author Organization [facility] Address [facility] [place] [address] Care Team Providers Care Motor Vehicle Licence Examiner Name Role Phone Carla López MD Primary Care Provider Reason for Visit * Consultation (Routine) - Authorized Specialty Diagnoses / Procedures Referred By Contac t Referred To Contact Dermatology Diagnoses Disorder of skin and subcutaneous tissue ONGOING RASH TAYLOR, BX SHOWS SPONGIOTIC DERMATITIS, NOT RESPONDING TO TOPICAL STEROIDS Carla López MD [address] [place] [address] [facility] [address] [place] [address] Referral ID Status Reason Start Date Expiration Date Visits Requested Visits Authorized [id number] Authorized Consult, Test & Treat PCP Updated and/or Approved 11/28/2023 11/27/2024 6 6 Encounter Details Date Type Department Care Team (Late st Contact Info) Description 01/04/2024 2:40 PM EST Office Visit Dermatology at [facility] [address] [place] [address] Elle Kevin MD [facility] [place] [address] Other eczema Social History Tobacco Use Types Packs/Day Years Used Date Smoking Tobacco: Former Cigarettes Q uit: 09/10/2002 Smokeless Tobacco: Never Sex and Gender Information Value Date Recorded Sex Assigned at Not on file Gender Identity Not on file Sexual Orientation Not on file documented as of this encounter Progress Notes * Elle Kevin MD - 01/04/2024 2:40 PM EST Images from the original note were not included. DEPARTMENT OF DERMATOLOGY Medical Dermatology Clinic Provider: [facility] Patient's preferred name Angella Preferred contact method for results [x]Phone []myD-H []Letter Detailed phone message OK? Yes Are there any other people with whom we may discuss your care? 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 Patient is new and self- referred to the clinicfor a rash on the left taylor that has been present for 2 years, has tried OTC anti fungals, clobetasol cream, bag bomb, and Eucerin, The rash is itchy sometimes. Medications: Reviewed in eD-H Allergies: Reviewed in eD-H Skin Examination: Focused skin examination of the left taylor was normal with the exception of the findings below. Assessment/Plan Biopsy Proven Eczema with lichenification- 4cm pink lichenified plaque with excoriations on the left tyalor -Reviewed outside pathology results - Discontinue bag balm - Recommended applying Vaseline or CeraVe - Recommended sensitive skin care. Handout provided - Start Rx: Betamethasone- apply topically twice daily for two weeks and then take one week off. Recommend applying under occlusion at night. - Joint decision to proceed with ILK today. Procedure: Intra-lesional Kenalog injection Location(s): Left taylor Kenalog 10 mg/mL, total 0.5 mL Discussed indications for the procedure and expectations including risks, benefits, and potential side effects (hypopigmentation, ulceration, and skin atrophy). Skin prepped with alcohol and Kenalog injected intralesionally. There were no complications; patient tolerated the procedure well. Wound dressed with adhesive bandage as needed. LOT: [id number] EXP: OCT 2025 [facility]: 3158-6431-68 Figure 1 Photo(s) taken and charted with patient's verbal consent. Other: OTC skin products discussed RTC: 6-8 weeks for eczema follow up []Note routed to partnership development manager []Recall placed in scheduling system [x]Appointment scheduled at checkout Scribe attestation: Radha Tejada RN has performed the documentation for this encounter in the presence of and acting as a scribe for Elle Kevin MD. I performed the above scribed service and agree with the accuracy of the documentation in this encounter. Reviewed and signed by: Elle Kevin MD Dermatology [facility] documented in this encounter Plan of Treatment Not on file documented as of this encounter Visit Diagnoses Diagnosis Other eczema documented in this encounter Care Teams Motor Vehicle Licence Examiner Relationship Specialty Start Date End Date Carla López MD [address] [place] [address] PCP - General 10/05/10 documented as of this encounter
[2024-11-22 12:54] LABS: TSH (W/Ref FT4) 2.71 uIU/mL (0.36-3.74)
[2024-11-22 16:47] LABS: FREE T4 0.83 ng/dL (0.76-1.46)
== END 2024-11-22 01:07 | disposition home or self-care (01) ==
LOC: LBO 01:06
PROVIDERS: PCP Family Medicine; Visit Provider Family Medicine
DX: R63.5 Abnormal weight gain (principal)
CPT/HCPCS: 36415; 84439; 84443

== ENCOUNTER 2025-02-19 13:09 | Outpatient (CLI) | payer OTHER, SELFPAY ==
[2025-02-20 10:06] LABS: Lyme Ab w Rflx to Lyme Confirm Negative (Negative)
[2025-02-22 15:24] LABS: Anaplasma phagocytophilum Negative (Negative); B. miyamotoi PCR Negative (Negative); Babesia divergens/MO-1 Negative (Negative); Babesia duncani Negative (Negative); Babesia microti Negative (Negative); Ehrlichia chaffeensis Negative (Negative); Ehrlichia ewingii/canis Negative (Negative); Ehrlichia muris eauclairensis Negative (Negative)
== END 2025-02-19 13:10 | disposition home or self-care (01) ==
LOC: LBO 13:09
PROVIDERS: PCP Family Medicine; Visit Provider Registered Nurse Maternal Newborn
DX: H90.3 Sensorineural hearing loss, bilateral (principal)
CPT/HCPCS: 36415; 87798; 86618

== ENCOUNTER 2025-03-14 01:31 | Outpatient (CLI) | payer OTHER, SELFPAY ==
--- NOTE | 2025-03-14 07:30 | DI.MRI_ITS ---
Exam(s) MR IAC BRAIN WO/W EXAM: MR IAC BRAIN WO/W CLINICAL HISTORY: Asymmetrical SN hearing loss,fullness lt ear,tinnitus lt ear. TECHNIQUE: Multiplanar multisequence MRI of the brain and internal auditory canals was performed. CONTRAST MATERIAL: IV Contrast: 12 mL of Dotarem contrast administered. COMPARISON: CT NECK WITHOUT CONTRAST from 01/28/2018 FINDINGS: VENTRICLES AND EXTRA AXIAL SPACES: Normal in size and morphology for the patient's age. HEMORRHAGE: None. CEREBRAL PARENCHYMA: No focus of restricted diffusion to suggest acute infarct. No space-occupying le arron identified. No abnormal high signal lesions in the white matter. MIDLINE SHIFT: None. BRAINSTEM/CEREBELLUM: Normal. CALVARIUM: Normal. ENHANCEMENT: No suspicious enhancement identified. VISUALIZED PARANASAL SINUSES/MASTOIDS: Clear. ORBITS: Unremarkable. IAC/CP ANGLE: The internal and external auditory canals are within normal limits. The cerebellar pont ine angles are unremarkable. No enhancing lesions are seen. Visualized portions of the cranial nerves appear within normal limits. No aberrant vascular loops. IMPRESSION: Unremarkable MRI of the brain and internal auditory canals. DATA REPOSITORY:
[2025-03-14] MEDS: Gadoterate meglumine 20 ML VIAL 12 ML IVP (13:21)
[2025-03-14] MEDS: Normal Saline Flush 10 ML SYR IJ (13:22)
== END 2025-03-14 01:51 ==
LOC: DI 01:31
PROVIDERS: PCP Family Medicine; Visit Provider Registered Nurse Maternal Newborn
DX: H90.3 Sensorineural hearing loss, bilateral (principal); H93.12 Tinnitus, left ear; H93.8X2 Other specified disorders of left ear
CPT/HCPCS: 70553

== ENCOUNTER 2025-10-02 12:40 | Outpatient (REF) | payer OTHER, SELFPAY ==
[2025-10-02 16:02] LABS: TSH 2.12 uIU/mL (0.55-4.78)
[2025-10-02 16:25] LABS: Cholesterol 195 mg/dL (<200); HDL Cholesterol 116 mg/dL (>40)
[2025-10-02 16:34] LABS: Hemoglobin A1C 5.3 % (<5.7)
== END 2025-10-02 12:41 | disposition home or self-care (01) ==
LOC: NCHCN 12:40
PROVIDERS: PCP Family Medicine; Visit Provider Family Medicine
DX: Z83.3 Family history of diabetes mellitus (principal); Z13.220 Encounter for screening for lipoid disorders; Z13.29 Encounter for screening for other suspected endocrine disorder
CPT/HCPCS: 80061; 83036; 84443

== ENCOUNTER 2025-11-11 00:24 | Outpatient (CLI) | payer OTHER, SELFPAY ==
[2025-11-11 14:20] LABS: Anion Gap 8 mmol/L (3-11); BUN 15 mg/dL (9-23); CO2 29.7 mmol/L (20.0-31.0); Calcium 9.4 mg/dL (8.3-10.6); Chloride 99 mmol/L (98-107); Glucose 143 mg/dL (74-106); Potassium 3.8 mmol/L (3.5-5.1); Sodium 137 mmol/L (136-145)
== END 2025-11-11 00:25 | disposition home or self-care (01) ==
LOC: LBO 00:25
PROVIDERS: PCP Family Medicine; Visit Provider Family Medicine
DX: I10 Essential (primary) hypertension (principal)
CPT/HCPCS: 36415; 80048